=== PATIENT | male | born 1980 | race Caucasian/White ===

== ENCOUNTER 2020-08-23 09:04 | Emergency (ER) | payer BC ==
[~2020-08-23] VITALS: Ht 172.7 cm; Wt 76.7 kg
--- OUTSIDE RECORDS SUMMARY | ~2020-08-23 | XMS | Encounter Summary ---
Demographics + + + | Address | [address] | | | [place] [address] | + + + | Home Phone | | + + + | Preferred Language | Unknown | + + + | Marital Status | Single | + + + | Buddhist Affiliation | 1077 | + + + | Race | White | + + + | Ethnic Group | Not or | + + + Author + + + | Author | [facility] | | | and [place] | + + + | Organization | [facility] | | | and [place] | + + + | Address | Unknown | + + + | Phone | Unavailable | + + + Support + + + + + | Name | Relationship | Address | Phone | + + + + + | Melisa Simpson | ECON | [address] | | | | | [place], | | | | | [place] [address] | | + + + + + | Osmel Simpson | ECON | [address] | | | | | [place] [address] | | + + + + + Care Team Providers + +------+ + | Care Associate Director Qa Name | Role | Phone | + +------+ + PCP | Unavailable | + +------+ + Encounter Details +--------+ + + + + | Date | Type | Department | Care Team | Description | +--------+ + + + + | 07/06/ | Hospital | [facility] | | | | 1992 - | Encounter | [facility] | | | | | | [address] | | | | 07/07/ | | [place] [address] | | | | 1992 | | [phone] | | | +--------+ + + + + Social History + +-------+ +--------+------+ | Tobacco Use | Types | Packs/Day | Years | Date | | | | | Used | | + +-------+ +--------+------+ | Never Assessed | | | | | + +-------+ +--------+------+ + + + | Sex Assigned at | Date Recorded | | | | + + + | Not on file | | + + + documented as of this encounter Plan of Treatment Not on filedocumented as of this encounter Visit Diagnoses Not on filedocumented in this encounter"
--- OUTSIDE RECORDS SUMMARY | ~2020-08-23 | XMS | Encounter Summary ---
Demographics + + + | Address | [address] | | | [place] [address] | + + + | Home Phone | | + + + | Preferred Language | Unknown | + + + | Marital Status | Single | + + + | Uatsdin Affiliation | 1077 | + + + | Race | White | + + + | Ethnic Group | Not or | + + + Author + + + | Author | [facility] | | | and [place] | + + + | Organization | [facility] | | | and [place] | + + + | Address | Unknown | + + + | Phone | Unavailable | + + + Support + + + + + | Name | Relationship | Address | Phone | + + + + + | Melisa Simpson | ECON | [address] [facility] | | | | | [place] | | | | | [place] [address] | | + + + + + | Osmel Simpson | ECON | [address] | | | | | [place] [address] | | + + + + + Care Team Providers + +------+ + | Care Case Hardener Name | Role | Phone | + +------+ + | Félix Li MD | PCP | | + +------+ + Reason for Visit + +--------+ + | Reason | Onset | Comments | | | Date | | + +--------+ + | Medication Refill | 01/30/ | | | | 2013 | | + +--------+ + Encounter Details +--------+--------+ + + + | Date | Type | Department | Care Team | Description | +--------+--------+ + + + | 01/30/ | Refill | [facility] | Félix Li MD | Medication Refill | | 2013 | | [facility] | [address] | | | | | MEDICINE [address] | [address] | | | | | [place] | [place] [address] | | | | | [place] | [phone] | | | | | [address] | | | | | | [phone] | | | +--------+--------+ + + + Social History + +-------+ +--------+------+ | Tobacco Use | Types | Packs/Day | Years | Date | | | | | Used | | + +-------+ +--------+------+ | Never Smoker | | | | | + +-------+ +--------+------+ + + +---------+ + | Alcohol Use | Drinks/Week | oz/Week | Comments | + + +---------+ + | Yes | | | 3 drinks per week | + + +---------+ + + + + | Sex Assigned at | Date Recorded | | | | + + + | Not on file | | + + + documented as of this encounter Plan of Treatment Not on filedocumented as of this encounter Visit Diagnoses Not on filedocumented in this encounter"
--- OUTSIDE RECORDS SUMMARY | ~2020-08-23 | XMS | Encounter Summary ---
Demographics + + + | Address | [address] | | | [place] [address] | + + + | Home Phone | | + + + | Preferred Language | Unknown | + + + | Marital Status | Single | + + + | Christian Affiliation | 1077 | + + + | Race | White | + + + | Ethnic Group | Not or | + + + Author + + + | Author | [facility] | | | and [place] | + + + | Organization | [facility] | | | and [place] | + + + | Address | Unknown | + + + | Phone | Unavailable | + + + Support + + + + + | Name | Relationship | Address | Phone | + + + + + | Melisa Simpson | ECON | [address] | | | | | [place], | | | | | [place] [address] | | + + + + + | Osmel Simpson | ECON | [address] | | | | | [place] [address] | | + + + + + Care Team Providers + +------+ + | Care Gas Turbine Powerplant Mechanic Name | Role | Phone | + +------+ + PCP | Unavailable | + +------+ + Encounter Details +--------+ + + + + | Date | Type | Department | Care Team | Description | +--------+ + + + + | 08/25/ | Hospital | [facility] | | | | 2009 | Encounter | [facility] | | | | | | CENTER [address] | | | | | | [place] | | | | | | [address] | | | | | | [phone] | | | +--------+ + + + [...]
--- OUTSIDE RECORDS SUMMARY | ~2020-08-23 | XMS | Encounter Summary ---
Demographics + + + | Address | [address] | | | [place] [address] | + + + | Home Phone | | + + + | Preferred Language | Unknown | + + + | Marital Status | Single | + + + | Advent Affiliation | 1077 | + + + | Race | White | + + + | Ethnic Group | Not or | + + + Author + + + | Author | [facility] | | | and [place] | + + + | Organization | [facility] | | | and [place] | + + + | Address | Unknown | + + + | Phone | Unavailable | + + + Support + + + + + | Name | Relationship | Address | Phone | + + + + + | Melisa Simpson | ECON | [address] [facility] [address] | | | | | [place] | | | | | [place] [address] | | + + + + + | Osmel Simpson | ECON | [address] | | | | | [place] [address] | | + + + + + Care Team Providers + +------+ + | Care Marketing Analytics Specialist Name | Role | Phone | + +------+ + | Félix Li MD | PCP | | + +------+ + Reason for Visit + +--------+ + | Reason | Onset | Comments | | | Date | | + +--------+ + | Medication Refill | 09/25/ | | | | 2012 | | + +--------+ + Encounter Details +--------+--------+ + + + | Date | Type | Department | Care Team | Description | +--------+--------+ + + + | 09/25/ | Refill | [facility] | Félix Li MD | Medication Refill | | 2012 | | [facility] | [address] | | | | | MEDICINE [address] | [address] | | | | | [place] | [place] [address] | | | | | [place] | [phone] | | | | | [address] | | | | | | [phone] | | | +--------+--------+ + + + [...] + + documented as of this encounter Miscellaneous Notes Telephone Encounter - Rita Hugo - 09/25/2013 5:06 PM PDTFormatting of this note l[place] ht be different from the original. Requested Prescriptions Pending Prescriptions Disp Refills glucose blood test strips (PARVEEN CONTOUR TEST) strip 100 each 3 Sig: QID testing Insulin dependent 250.02 Also needs new rx for machine too. Rita Hugo documented in this encou nter Plan of Treatment Not on filedocumented as of this encounter Visit Diagnoses Not on filedocumented in this encounter"
--- OUTSIDE RECORDS SUMMARY | ~2020-08-23 | XMS | Encounter Summary ---
Demographics + + + | Address | [address] | | | [place] [address] | + + + | Home Phone | | + + + | Preferred Language | Unknown | + + + | Marital Status | Single | + + + | Yarsani Affiliation | 1077 | + + + | Race | White | + + + | Ethnic Group | Not or | + + + Author + + + | Author | [facility] | | | and [place] | + + + | Organization | [facility] | | | and [place] | + + + | Address | Unknown | + + + | Phone | Unavailable | + + + Support + + + + + | Name | Relationship | Address | Phone | + + + + + | Jassi Simpson | ECON | [address] [facility] [facility] | | | | | [place] | | | | | [place] [address] | | + + + + + | Osmel Simpson | ECON | [address] | | | | | [place] [address] | | + + + + + Care Team Providers + +------+ + | Care Treatment Counselor Name | Role | Phone | + +------+ + | Félix Li MD | PCP | | + +------+ + Reason for Visit + +--------+ + | Reason | Onset | Comments | | | Date | | + +--------+ + | Medical Problem | 05/11/ | | | (Minor) | 2013 | | + +--------+ + Encounter Details +--------+ + + + + | Date | Type | Department | Care Team | Description | +--------+ + + + + | 05/11/ | Telephone | [facility] | Félix Li MD | Medical Problem | | 2013 | | [facility] | [address] | ([place]) | | | | CLINIC [address] | [address], | | | | | [place], [place] | [place] [address] | | | | | [address] | [phone] | | | | | [phone] | | | +--------+ + + + [...] this encounter Miscellaneous Notes Telephone Encounter - Kylee Cohen RN - 05/11/2014 8:44 AM PDTDATE/TIME: 05/11/2014 8: 44 Confirmed with patient's spouse and pharmacy. Pharmacy will provide but patient has to pay privately as he just got it refilled 1 week ago. SJB elephone Encounter - Ada Mejia - 05/11/2014 8:05 A M PDTPatient spouse called patient left his Novolog out of [facility] and needs some ri ght away - Please call jassi the spouse at [phone]. Will send to [facility] requested I send message to who ever is here to try fill [facility]. Who ever can react to th is sooner please do. Thanks. Please send to [facility]- but call to let patient know w hen done. documented i n this encounter Plan of Treatment Not on filedocumented as of this encounter Visit Diagnoses Not on filedocumented in this encounter"
--- OUTSIDE RECORDS SUMMARY | ~2020-08-23 | XMS | Encounter Summary ---
Demographics + + + | Address | [address] | | | [place] [address] | + + + | Home Phone | | + + + | Preferred Language | Unknown | + + + | Marital Status | Single | + + + | Spiritism Affiliation | 1077 | + + + | Race | White | + + + | Ethnic Group | Not or | + + + Author + + + | Author | [facility] | | | and [place] | + + + | Organization | [facility] | | | and [place] | + + + | Address | Unknown | + + + | Phone | Unavailable | + + + Support + + + + + | Name | Relationship | Address | Phone | + + + + + | Melisa Simpson | ECON | [address] | | | | | [place], | | | | | [place] [address] | | + + + + + | Osmel Simpson | ECON | [address] | | | | | [place] [address] | | + + + + + Care Team Providers + +------+ + | Care Ripening Room Attendant Name | Role | Phone | + +------+ + PCP | Unavailable | + +------+ + Encounter Details +--------+ + + + + | Date | Type | Department | Care Team | Description | +--------+ + + + + | 07/22/ | Hospital | [facility] | Félix Li MD | | | 2011 | Encounter | [facility] | [address] | | | | | EDUCATION [address] | [address], | | | | | [facility] | [place] [address] | | | | | [place], [place] | [phone] | | | | | [address] | | | | | | [phone] | | | +--------+ + + + [...]
--- OUTSIDE RECORDS SUMMARY | ~2020-08-23 | XMS | Encounter Summary ---
Demographics + + + | Address | [address] | | | [place] [address] | + + + | Home Phone | | + + + | Preferred Language | Unknown | + + + | Marital Status | Single | + + + | Gnosticism Affiliation | 1077 | + + + | Race | White | + + + | Ethnic Group | Not or | + + + Author + + + | Author | [facility] | | | and [place] | + + + | Organization | [facility] | | | and [place] | + + + | Address | Unknown | + + + | Phone | Unavailable | + + + Support + + + + + | Name | Relationship | Address | Phone | + + + + + | Melisa Simpson | ECON | [address] | | | | | [place], | | | | | [place] [address] | | + + + + + | Osmel Simpson | ECON | [address] | | | | | [place] [address] | | + + + + + Care Team Providers + +------+ + | Care Echocardiographer Name | Role | Phone | + +------+ + PCP | Unavailable | + +------+ + Encounter Details +--------+ + + + + | Date | Type | Department | Care Team | Description | +--------+ + + + + | 11/29/ | Hospital | [facility] | | | | 1996 | Encounter | [facility] | | | | | | CENTER [address] | | | | | | [place] | | | | | | [address] | | | | | | [phone] | | | +--------+ + + + [...]
--- OUTSIDE RECORDS SUMMARY | ~2020-08-23 | XMS | Encounter Summary ---
Demographics + + + | Address | [address] | | | [place] [address] | + + + | Home Phone | | + + + | Preferred Language | Unknown | + + + | Marital Status | Single | + + + | Zoroastrianism Affiliation | 1077 | + + + | Race | White | + + + | Ethnic Group | Not or | + + + Author + + + | Author | [facility] | | | and [place] | + + + | Organization | [facility] | | | and [place] | + + + | Address | Unknown | + + + | Phone | Unavailable | + + + Support + + + + + | Name | Relationship | Address | Phone | + + + + + | Melisa Simpson | ECON | [address] [facility] | | | | | [place] | | | | | [place] [address] | | + + + + + | Osmel Simpson | ECON | [address] | | | | | [place] [address] | | + + + + + Care Team Providers + +------+ + | Care Archeology Professor Name | Role | Phone | + +------+ + | Félix Li MD | PCP | | + +------+ + Reason for Visit + + + | Reason | Comments | + + + | Skin Lesion | wants lesion on penis removed. Had smaller lesions removed | | | several months ago, with Dr Watson, but larger one remains. | + + + Encounter Details +--------+---------+ + + + | Date | Type | Department | Care Team | Description | +--------+---------+ + + + | 10/02/ | Office | [facility] | Amee Hou | HPV in male (Primary | | 2012 | Visit | [facility] | [address] | Dx) | | | | MEDICINE [address] | [address] | | | | | [address] | [place], [place] | | | | | [place], [place] | [address] | | | | | [address] | | | | | | [phone] | | | +--------+---------+ + + + Social History + +-------+ [...] + + documented as of this encounter Last Filed Vital Signs + + + + + | Vital Sign | Reading | Time Taken | Comments | + + + + + | Blood Pressure | 120/80 | 10/02/2013 10:18 AM | | | | | PST | | + + + + + | Pulse | 81 | 10/02/2013 10:18 AM | | | | | PST | | + + + + + | Temperature | - | - | | + + + + + | Respiratory Rate | - | - | | + + + + + | Oxygen Saturation | 99% | 10/02/2013 10:18 AM | | | | | PST | | + + + + + | Inhaled Oxygen | - | - | | | Concentration | | | | + + + + + | Weight | 70.9 kg (156 lb 4.8 | 10/02/2013 10:18 AM | | | | oz) | PST | | + + + + + | Height | - | - | | + + + + + | Body Mass Index | - | - | | + + + + + documented in this encounter Progress Notes Amee Hou PA-C - 10/02/2013 10:37 AM PSTFormatting of this note might be differe nt from the original. Objective: Osmel Simpson is a 33 y.o. male presenting for evaluation and treatment of one HPV lesion. He has been diagnosed in the past and was seen a number of months ago was in a dermatology office and also. He had a number of penile HPV lesions treated at that trent e but one larger lesion persisted. He has no other complaints or concerns today. No Known Allergies ROS negative for all systems with regards to the chief complaint. Subjective: Physical Exam BP 120/80 | Pulse 81 | Wt 70.897 kg (156 lb 4.8 oz) | SpO2 99% Constitutional: Osmel Simpson is alert and oriented, well-developed, well -nourished, healthy and non-toxic in appearance and in no acute distress. Head : Normocephalic and atraumatic. Eyes: Conjunctivae clear, noninjected. No scleral icterus noted. Skin: A directed exam was performed, evaluating the lesion of concern on the left lateral aspect of his penile shaft. There was an approximately 3-4 mm verrucous papule, consistent with HPV. Diagnosis/Plan: 1. HPV in male 1. After verbal consent, 1 HPV lesion was treated with cryotherapy. The patient tolerated t he procedure well and wound care instructions, post treatment inflammation and healing expec tations were reviewed. 2. He knows to return with persistent or recurrent HPV lesions or other acute skin changes or lesions of concern. This note was dictated using voice recognition software. 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
--- OUTSIDE RECORDS SUMMARY | ~2020-08-23 | XMS | Encounter Summary ---
Demographics + + + | Address | [address] | | | [place] [address] | + + + | Home Phone [...] Author + + + | Author | [facility] | | | and [place] | + + + | Organization | [facility] | | | and [place] | + + + | Address | Unknown | + + + | Phone | Unavailable | + + + Support + + + + + | Name | Relationship | Address | Phone | + + + + + | Melisa Simpson | ECON | [address] [facility] | | | | | [place] | | | | | [place] [address] | | + + + + + | Osmel Simpson | ECON | [address] | | | | | [place] [address] | | + + + + + Care Team Providers + +------+ + | Care Leaf Sorter Name | Role | Phone | + +------+ + | Félix Li MD | PCP | | + +------+ + Reason for Visit + +--------+ + | Reason | Onset | Comments | | | Date | | + +--------+ + | Medication Refill | 08/25/ | | | | 2012 | | + +--------+ + Encounter Details +--------+--------+ + + + | Date | Type | Department | Care Team | Description | +--------+--------+ + + + | 08/25/ | Refill | [facility] | Félix Li MD | Medication Refill | | 2012 | | [facility] | [address] | | | | | MEDICINE [address] | [address] | | | | | [place] | [place] [address] | | | | | [place] | [phone] | | | | | [address] | | | | | | [phone] | | | +--------+--------+ + + + [...] this encounter Miscellaneous Notes Telephone Encounter - Gwen Tnaner - 08/25/2013 5:55 PM PDTFax rec'd for Novolog 100U/M L Thanks Gwen Tanner documented in this encounter Plan of Treatment Not on filedocumented as of this encounter Visit Diagnoses + + | Diagnosis | + + | Type I (juvenile type) diabetes mellitus without mention of complication, not stated | | as uncontrolled - Primary | + + documented in this encounter"
--- OUTSIDE RECORDS SUMMARY | ~2020-08-23 | XMS | Encounter Summary ---
Demographics + + + | Address | [address] | | | [place] [address] | + + + | Home Phone | | + + + | Preferred Language | Unknown | + + + | Marital Status | Single | + + + | Mandaen Affiliation | 1077 | + + + | Race | White | + + + | Ethnic Group | Not or | + + + Author + + + | Author | [facility] | | | and [place] | + + + | Organization | [facility] | | | and [place] | + + + | Address | Unknown | + + + | Phone | Unavailable | + + + Support + + + + + | Name | Relationship | Address | Phone | + + + + + | Melisa Simpson | ECON | [address] [facility] | | | | | [place] | | | | | [place] [address] | | + + + + + | Osmel Simpson | ECON | [address] | | | | | [place] [address] | | + + + + + Care Team Providers + +------+ + | Care Percussion Welding Machine Operator Name | Role | Phone | + +------+ + | Félix Li MD | PCP | | + +------+ + Reason for Visit + +--------+ + | Reason | Onset | Comments | | | Date | | + +--------+ + | Medication Refill | 09/01/ | | | | 2012 | | + +--------+ + Encounter Details +--------+--------+ + + + | Date | Type | Department | Care Team | Description | +--------+--------+ + + + | 09/01/ | Refill | [facility] | Félix Li MD | Medication Refill | | 2012 | | [facility] | [address] | | | | | [address] | [address] [place] | | | | | [address] [facility] [address] | | | | | [place] | [phone] | | | | | [address] | | | | | | [phone] | | | +--------+--------+ + + + [...] this encounter Miscellaneous Notes Telephone Encounter - Leisa Galarza - 09/01/2013 10:13 AM PDTFormatting of this note migh t be different from the original. Requested Prescriptions Pending Prescriptions Disp Refills atorvaSTATin (LIPITOR) 20 mg tablet 90 tablet Sig: Take 1 tablet by mouth nightly. LF 08/03/2013 Thanks, Leisa Galarza documented in this encoun ter Plan of Treatment Not on filedocumented as of this encounter Visit Diagnoses Not on filedocumented in this encounter"
--- OUTSIDE RECORDS SUMMARY | ~2020-08-23 | XMS | Encounter Summary ---
Demographics + + + | Address | [address] | | | [place] [address] | + + + | Home Phone | | + + + | Preferred Language | Unknown | + + + | Marital Status | Single | + + + | Taoism Affiliation | 1077 | + + + | Race | White | + + + | Ethnic Group | Not or | + + + Author + + + | Author | [facility] | | | and [place] | + + + | Organization | [facility] | | | and [place] | + + + | Address | Unknown | + + + | Phone | Unavailable | + + + Support + + + + + | Name | Relationship | Address | Phone | + + + + + | Melisa Simpson | ECON | [address] [facility] | | | | | [place] | | | | | [place] [address] | | + + + + + | Osmel Simpson | ECON | [address] | | | | | [place] [address] | | + + + + + Care Team Providers + +------+ + | Care Private Branch Exchange Service Advisor Name | Role | Phone | + +------+ + | Félix Li MD | PCP | | + +------+ + Reason for Visit + + + | Reason | Comments | + + + | Medication Refill | | + + + Encounter Details +--------+--------+ + + + | Date | Type | Department | Care Team | Description | +--------+--------+ + + + | 03/21/ | Refill | [facility] | Félix Li MD | Medication Refill | | 2013 | | [facility] | [address] | | | | | MEDICINE [address] | [address] [facility] [address] | | | | | [place] | [place] [address] | | | | | [place], [place] | [phone] | | | | | [address] | | | | | | [phone] | | | +--------+--------+ + + + [...] Telephone Encounter - Kylee Cohen RN - 03/24/2014 10:29 AM PDTDATE/TIME: 03/24/2014 10 :29 ANA and labs on 09/05/13. Refilled x 6 months. SJB documented in this encounter Plan of Treatment Not on filedocumented as of this encounter Visit Diagnoses + + | Diagnosis | + + | Type I (juvenile type) diabetes mellitus without mention of complication, not stated | | as uncontrolled - Primary | + + | Unspecified essential hypertension | + + documented in this encounter"
--- OUTSIDE RECORDS SUMMARY | ~2020-08-23 | XMS | Encounter Summary ---
Demographics + + + | Address | [address] | | | [place] [address] | + + + | Home Phone | | + + + | Preferred Language | Unknown | + + + | Marital Status | Single | + + + | Catholic Affiliation | 1077 | + + + | Race | White | + + + | Ethnic Group | Not or | + + + Author + + + | Author | [facility] | | | and [place] | + + + | Organization | [facility] | | | and [place] | + + + | Address | Unknown | + + + | Phone | Unavailable | + + + Support + + + + + | Name | Relationship | Address | Phone | + + + + + | Melisa Simpson | ECON | [address] | | | | | [place], | | | | | [place] [address] | | + + + + + | Osmel Simpson | ECON | [address] | | | | | [place] [address] | | + + + + + Care Team Providers + +------+ + | Care Rock Lather Name | Role | Phone | + +------+ + PCP | Unavailable | + +------+ + Encounter Details +--------+ + + + + | Date | Type | Department | Care Team | Description | +--------+ + + + + | 12/31/ | Hospital | [facility] | [place], | | | 1992 - | Encounter | MED CTR MED ONC | Henry Huber MD [address] | | | | | [address] [place] | [facility] | | | 01/02/ | | [place] [address] | [place] [address] | | | 1992 | | [phone] | [phone] | | | | | | | | +--------+ + + + [...]
--- OUTSIDE RECORDS SUMMARY | ~2020-08-23 | XMS | Encounter Summary ---
Demographics + + + | Address | [address] | | | [place] [address] | + + + | Home Phone [...] + | Author | [facility] | | | and [place] [...] Jassi Simpson | ECON | [address] | | | | | [place] | | | | | [place] [address] | | + + + + + | Osmel Simpson | ECON | [address] | | | | | [place] [address] | | + + + + + Care Team Providers + +------+ + | Care Partner Cco Name | Role | Phone | + +------+ + | Félix Li MD | PCP | | + +------+ + Reason for Visit + +--------+ + | Reason | Onset | Comments | | | Date | | + +--------+ + | Medication | 11/12/ | | | Management | 2012 | | + +--------+ + Encounter Details +--------+ + + + + | Date | Type | Department | Care Team | Description | +--------+ + + + + | 11/12/ | Telephone | [facility] | Félix Li MD | Medication | | 2012 | | HEALTHCARE INTERNAL | [address] | Management | | | | MEDICINE 9[address] | [address], | | | | | [address] [place] | [place] [address] | | | | | [place] | [phone] | | | | | [address] | | | | | | [phone] | | | +--------+ + + + [...] Notes Telephone Encounter - Rita Hugo - 11/12/2013 5:54 PM PSTFormatting of this note l[place] ht be different from the original. Requested Prescriptions Pending Prescriptions Disp Refills glucose blood test strips (PARVEEN CONTOUR TEST) strip 100 each 3 Sig: QID testing Insulin dependent 250.02 Rita Hugo elephone Encounter - Gwen Sanchez - 11/12/2013 10:44 AM PSTpls call jassi re some medication mix up ? He needs it they are going out of town [phone] Thanks Gewn Tanner documented in this encounter Plan of Treatment Not on filedocumented as of this encounter Visit Diagnoses Not on filedocumented in this encounter"
--- OUTSIDE RECORDS SUMMARY | ~2020-08-23 | XMS | Encounter Summary ---
Demographics + + + | Address | [address] | | | [place] [address] | + + + | Home Phone [...] Author + + + | Author | [facility] | | | and [place] | + + + | Organization | [facility] | | | and [place] | + + + | Address | Unknown | + + + | Phone | Unavailable | + + + Support + + + + + | Name | Relationship | Address | Phone | + + + + + | Melisa Simpson | ECON | [address] | | | | | [place] | | | | | [place] [address] | | + + + + + | Osmel Simpson | ECON | [address] | | | | | [place] [address] | | + + + + + Care Team Providers + +------+ + | Care State Trooper Name | Role | Phone | + +------+ + | Félix Li MD | PCP | | + +------+ + Reason for Visit + +--------+ + | Reason | Onset | Comments | | | Date | | + +--------+ + | Medication Refill | 08/25/ | Novolog | | | 2012 | | + +--------+ + Encounter Details +--------+--------+ + + + | Date | Type | Department | Care Team | Description | +--------+--------+ + + + | 08/25/ | Refill | [facility] | Félix Li MD | Medication Refill | | 2012 | | HEALTHCARE INTERNAL | [address] | (Novolog) | | | | MEDICINE 934 | [address] | | | | | [place] | [place] [address] | | | | | [place] | [phone] | | | | | [address] | | | | | | [phone] | | | +--------+--------+ + + + [...] this encounter Miscellaneous Notes Telephone Encounter - Odessa Gallegos - 08/25/2013 3:59 PM PDTPlease send the novolo g 100/unit/ml to [facility], He is currenly out of the medication, documented in this encounter Plan of Treatment Not on filedocumented as of this encounter Visit Diagnoses + + | Diagnosis | + + | Type I (juvenile type) diabetes mellitus without mention of complication, not stated | | as uncontrolled - Primary | + + documented in this encounter"
--- OUTSIDE RECORDS SUMMARY | ~2020-08-23 | XMS | Encounter Summary ---
Demographics + + + | Address | [address] | | | [place] [address] | + + + | Home Phone | | + + + | Preferred Language | Unknown | + + + | Marital Status | Single | + + + | Latter Day Affiliation | 1077 | + + + | Race | White | + + + | Ethnic Group | Not or | + + + Author + + + | Author | [facility] | | | and [place] [...] Melisa Simpson | ECON | [address] [address] | | | | | [place] | | | | | [place] [address] | | + + + + + | Osmel Simpson | ECON | [address] | | | | | [place] [address] | | + + + + + Care Team Providers + +------+ + | Care Supervisor Grading Name | Role | Phone | + +------+ + | Félix Li MD | PCP | | + +------+ + Encounter Details +--------+ + + + + | Date | Type | Department | Care Team | Description | +--------+ + + + + | 09/02/ | Abstract | [facility] | Félix Li MD | Diabetes mellitus | | 2013 | | HEALTHCARE INTERNAL | [address] | type 1 (HCC) | | | | MEDICINE 934 | [address], | (Primary Dx); | | | | [address] [place] | [place] [address] | Hyperlipidemia; | | | | [place] | [phone] | Hypertension | | | | [address] | | | | | | [phone] | | | +--------+ + + + [...] + | Diagnosis | + + | Diabetes mellitus type 1 (HCC) - Primary Type I (juvenile type) diabetes mellitus | | without mention of complication, not stated as uncontrolled | + + | Hyperlipidemia Other and unspecified hyperlipidemia | + + | Hypertension Unspecified essential hypertension | + + documented in this encounter"
--- OUTSIDE RECORDS SUMMARY | ~2020-08-23 | XMS | Encounter Summary ---
Demographics + + + | Address | [address] | | | [place] [address] | + + + | Home Phone | | + + + | Preferred Language | Unknown | + + + | Marital Status | Single | + + + | Episcopalian Affiliation | 1077 | + + + | Race | White | + + + | Ethnic Group | Not or | + + + Author + + + | Author | [facility] | | | and [place] | + + + | Organization | [facility] | | | and [place] | + + + | Address | Unknown | + + + | Phone | Unavailable | + + + Support + + + + + | Name | Relationship | Address | Phone | + + + + + | Melisa Simpson | ECON | [address] [facility] | | | | | [place], | | | | | [place] [address] | | + + + + + | Osmel Simpson | ECON | [address] | | | | | [place] [address] | | + + + + + Care Team Providers + +------+ + | Care Sausage Canner Name | Role | Phone | + +------+ + PCP | Unavailable | + +------+ + Reason for Visit + +--------+ + | Reason | Onset | Comments | | | Date | | + +--------+ + | Medication Refill | 07/21/ | | | | 2014 | | + +--------+ + Encounter Details +--------+--------+ + + + | Date | Type | Department | Care Team | Description | +--------+--------+ + + + | 07/21/ | Refill | [facility] | Félix Li MD | Medication Refill | | 2014 | | [facility] | [address] [facility] | | | | | CLINIC 1010 | [address], | | | | | [address] [facility] [address] | [place] [address] | | | | | [place], [place] | [phone] | | | | | [address] | | | | | | [phone] | | | +--------+--------+ + + + [...] Notes Telephone Encounter - Rita Hugo - 07/21/2015 11:42 AM PDTFormatting of this note [place] ht be different from the original. Requested Prescriptions Pending Prescriptions Disp Refills insulin lispro (HUMALOG) 100 units/mL injection (vial) 10 mL 0 Sig: For every 25 points blood sugar > 150 take 1 unit, plus for every 12 carbs take 1 un it. 3 x daily. Fax request received from [facility] in [place], [place]. Thanks! Rita Hugo documented in this encou nter Plan of Treatment Not on filedocumented as of this encounter Visit Diagnoses Not on filedocumented in this encounter"
--- OUTSIDE RECORDS SUMMARY | ~2020-08-23 | XMS | Encounter Summary ---
Demographics + + + | Address | [address] | | | [place] [address] | + + + | Home Phone | | + + + | Preferred Language | Unknown | + + + | Marital Status | Single | + + + | Yazdanism Affiliation | 1077 | + + + | Race | White | + + + | Ethnic Group | Not or | + + + Author + + + | Author | [facility] | | | and [place] [...] [address] | | | | | [place], | | | | | [place] [address] | | + + + + + | Osmel Simpson | ECON | [address] | | | | | [place] [address] | | + + + + + Care Team Providers + +------+ + | Care Communications Project Lead Name | Role | Phone | + +------+ + PCP | Unavailable | + +------+ + Encounter Details +--------+ + + + + | Date | Type | Department | Care Team | Description | +--------+ + + + + | 11/29/ | Hospital | [facility] | | | | 1996 - | Encounter | MED CTR ICU [address] | | | | | | [place], | | | | 11/30/ | | [place] [address] | | | | 1996 | | [phone] | | | +--------+ + + + [...]
--- OUTSIDE RECORDS SUMMARY | ~2020-08-23 | XMS | Encounter Summary ---
Demographics + + + | Address | [address] | | | [place] [address] | + + + | Home Phone | | + + + | Preferred Language | Unknown | + + + | Marital Status | Single | + + + | Roman Catholic Affiliation | 1077 | + + + | Race | White | + + + | Ethnic Group | Not or | + + + Author + + + | Author | [facility] | | | and [place] | + + + | Organization | [facility] | | | and [place] | + + + | Address | Unknown | + + + | Phone | Unavailable | + + + Support + + + + + | Name | Relationship | Address | Phone | + + + + + | Melisa Simpson | ECON | [address] | | | | | [place] | | | | | [place] [address] | | + + + + + | Osmel Simpson | ECON | [address] | | | | | [place] [address] | | + + + + + Care Team Providers + +------+ + | Care Clinical Biochemical Geneticist Name | Role | Phone | + +------+ + | Félix Li MD | PCP | | + +------+ + Encounter Details +--------+ + + + + | Date | Type | Department | Care Team | Description | +--------+ + + + + | 09/05/ | Hospital | [facility] | Félix Li MD | Diabetes mellitus | | 2013 | Encounter | HEALTHCARE | [address] [facility] | type 1 (HCC); | | | | LABORATORY 834 | [address], | Hypertension | | | | [address] | [place] [address] | | | | | [place], [place] | [phone] | | | | | [address] | | | | | | [phone] | | | +--------+ + + + [...] + + documented as of this encounter Medications at Time of Discharge + + + +---------+ + + | Medication | Sig | Dispensed | Refills | Start | End Date | | | | | | Date | | + + + +---------+ + + | aspirin 81 mg EC | Take 81 mg by mouth | | 0 | | | | tablet | Daily. | | | | | + + + +---------+ + + | erythromycin | 3 times daily. | | 0 | | | | ophthalmic ointment | | | | | | + + + +---------+ + + | Insulin | by Does not apply | | 0 | | | | Syringe-Needle U-100 | route. | | | | | | 30G X 5/16" 0.3 ML | | | | | | | MISC | | | | | | + + + +---------+ + + | Multiple Vitamin | Take by mouth. | | 0 | | | | (MULTI-VITAMIN PO) | | | | | | + + + +---------+ + + | Saline 0.9 % | by Nasal route. | | 0 | | | | (BEENA) BEENA | | | | | | + + + +---------+ + + | atorvaSTATin | Take 1 tablet by | 90 | 0 | 09/01/20 | | | (LIPITOR) 20 mg | mouth nightly. | tablet | | 13 | 4 | | tablet | | | | | | + + + +---------+ + + | glucose blood | QID testing Insulin | 100 | 3 | 08/19/20 | | | test strips (PARVEEN | dependent 250.02 | each | | 13 | 3 | | CONTOUR TEST) strip | | | | | | + + + +---------+ + + | insulin aspart | For every 25 points | 20 mL | 3 | 08/27/20 | | | (NOVOLOG) 100 | blood sugar > 150 | | | 13 | 4 | | units/mL | take 1 unit, plus | | | | | | injectionIndications | for ever 12 carbs | | | | | | : Type I (juvenile | take 1 unit. 3 times | | | | | | type) diabetes | daily before meals. | | | | | | mellitus without | | | | | | | mention of | | | | | | | complication, not | | | | | | | stated as | | | | | | | uncontrolled | | | | | | + + + +---------+ + + | insulin glargine | Inject 18 Units | | 0 | | | | (LANTUS) 100 | under the skin | | | | 3 | | units/mL injection | nightly. | | | | | + + + +---------+ + + | lisinopril | Take 1 tablet by | 90 | 1 | 09/05/20 | | | (PRINIVIL, ZESTRIL) | mouth Daily. | tablet | | 13 | 4 | | 10 mg tablet | | | | | | + + + +---------+ + + documented as of this encounter Progress Notes Kylee Cohen RN - 09/08/2013 2:37 PM PDT Quick Note: DATE/TIME: 09/08/2013 14:36 Letter with annotation sent to patient.SJB élix Li MD - 09/05/2013 4:20 PM PDT Quick Note: As expected, blood sugar control could use some improvement. He is not spilling protein in his urine, and kidney function is normal. We could refer him to program management specialist if he w ishes documented in this e ncounter Plan of Treatment Not on filedocumented as of this encounter Procedures + +--------+ + + + | Procedure Name | Priori | Date/Time | Associated Diagnosis | Comments | | | ty | | | | + +--------+ + + + | MICROALBUMIN/CREATIN | Routin | 09/05/2013 | Diabetes mellitus | Results for this | | INE RATIO, URINE | e | 9:40 AM | type 1 (HCC) | procedure are in the | | TEST | | PDT | | results section. | + +--------+ + + + | HEMOGLOBIN A1C | Routin | 09/05/2013 | Diabetes mellitus | Results for this | | | e | 9:35 AM | type 1 (HCC) | procedure are in the | | | | PDT | | results section. | + +--------+ + + + | BASIC METABOLIC | Routin | 09/05/2013 | Hypertension | Results for this | | PANEL | e | 9:35 AM | | procedure are in the | | | | PDT | | results section. | + +--------+ + + + documented in this encounter Results Microalbumin/Creatinine Ratio, Urine (09/05/2013 9:40 AM PDT) + +-------+ + + + | Component | Value | Ref Range | Performed | Pathologist | | | | | At | Signature | + +-------+ + + + | Microalbumi | 0.9 | mg/dL | [facility] | | | n, Urine, | | | HEALTHCARE | | | Random | | | LAB | | + +-------+ + + + | Creatinine, | 148 | mg/dL | [facility] | | | Urine, | | | HEALTHCARE | | | Random | | | LAB | | + +-------+ + + + | Microalbumi | 6 | <=30 mg/g | [facility] | | | n/Creatinin | | | HEALTHCARE | | | ratio | | | LAB | | + +-------+ + + + + + | Specimen | + + | Urine specimen | | (specimen) - Urine, | | Clean Catch | + + + + + + + | Performing | Address | City/State/Zipcode | Phone Number | | Organization | | | | + + + + + | [facility] | [address] [facility] | [place], [place] | [phone] | | HEALTHCARE LAB | | [address] | | + + + + + Basic Metabolic Panel (09/05/2013 9:35 AM PDT) + + + + + + | Component | Value | Ref Range | Performed | Pathologist | | | | | At | Signature | + + + + + + | Na | 138 | 136 - 145 | [facility] | | | | | mmol/L | HEALTHCARE | | | | | | LAB | | + + + + + + | K | 4.0 | 3.5 - 5.1 | [facility] | | | | | mmol/L | HEALTHCARE | | | | | | LAB | | + + + + + + | Cl | 102 | 98 - 107 mmol/L | [facility] | | | | | | HEALTHCARE | | | | | | LAB | | + + + + + + | CO2 | 27 | 21 - 32 mmol/L | [facility] | | | | | | HEALTHCARE | | | | | | LAB | | + + + + + + | Anion Gap | 9 | 5 - 15 mmol/L | [facility] | | | | | | HEALTHCARE | | | | | | LAB | | + + + + + + | Glucose | 78 | 74 - 100 mg/dL | [facility] | | | | | | HEALTHCARE | | | | | | LAB | | + + + + + + | BUN | 17 | 7 - 18 mg/dL | [facility] | | | | | | HEALTHCARE | | | | | | LAB | | + + + + + + | Creatinine | 0.70 | 0.60 - 1.30 | [facility] | | | | | mg/dL | HEALTHCARE | | | | | | LAB | | + + + + + + | eGFR, | >60Comment: GLOMERULAR | >=60 | [facility] | | | non- | FILTRATION | mL/min/1.73m2 | HEALTHCARE | | | [place] | RATE,ESTIMATED | | LAB | | | | mL/min/1.67a2Daya than | | | | | | 60 Chronic kidney | | | | | | disease,if found over a | | | | | | 3-month period.Less than | | | | | | 15 Kidney failureFor | | | | | | | | | | | | Americans,multiply the | | | | | | calculated GFR by 1.21. | | | | | | | | | | + + + + + + | Calcium | 9.1 | 8.5 - 10.1 | [facility] | | | | | mg/dL | HEALTHCARE | | | | | | LAB | | + + + + + + | BUN/Creatin | 24.3 (H) | 10.0 - 20.0 | [facility] | | | ine Ratio | | | HEALTHCARE | | | | | | LAB | | + + + + + + + + | Specimen | + + | Blood specimen | | (specimen) | + + + + + + + | Performing | Address | City/State/Zipcode | Phone Number | | Organization | | | | + + + + + | [facility] | [address] [facility] [facility] | [place], [place] | [phone] | | HEALTHCARE LAB | | [address] | | + + + + + Hemoglobin A1C (09/05/2013 9:35 AM PDT) + +---------+ + + + | Component | Value | Ref Range | Performed | Pathologist | | | | | At | Signature | + +---------+ + + + | Hemoglobin | 8.0 (H) | 4.8 - 6.0 % | [facility] | | | A1c | | | HEALTHCARE | | | | | | LAB | | + +---------+ + + + | Estimated | 183 | mg/dL | [facility] | | | Average | | | HEALTHCARE | | | Glucose | | | LAB | | + +---------+ + + + + + | Specimen | + + | Blood specimen | | (specimen) | + + + + + + + | Performing | Address | City/State/Zipcode | Phone Number | | Organization | | | | + + + + + | [facility] | [address] [facility] | [place], [place] | [phone] | | HEALTHCARE LAB | | [address] | | + + + + + documented in this encounter Visit Diagnoses + + | Diagnosis | + + | Diabetes mellitus type 1 (HCC) Type I (juvenile type) diabetes mellitus without | | mention of complication, not stated as uncontrolled | + + | Hypertension Unspecified essential hypertension | + + documented in this encounter
--- OUTSIDE RECORDS SUMMARY | ~2020-08-23 | XMS | Encounter Summary ---
Demographics + + + | Address | [address] | | | [place] [address] | + + + | Home Phone [...] Author + + + | Author | [facility] | | | and [place] | + + + | Organization | [facility] | | | and [place] | + + + | Address | Unknown | + + + | Phone | Unavailable | + + + Support + + + + + | Name | Relationship | Address | Phone | + + + + + | Melisa Simpson | ECON | [address] [facility] | | | | | [place], | | | | | [place] [address] | | + + + + + | Osmel Simpson | ECON | [address] | | | | | [place] [address] | | + + + + + Care Team Providers + +------+ + | Care Supervisor Nurse Name | Role | Phone | + +------+ + PCP | Unavailable | + +------+ + Reason for Visit + +--------+ + | Reason | Onset | Comments | | | Date | | + +--------+ + | Medication Refill | 08/19/ | refill request | | | 2012 | | + +--------+ + Encounter Details +--------+--------+ + + + | Date | Type | Department | Care Team | Description | +--------+--------+ + + + | 08/19/ | Refill | [facility] | Félix Li MD | Medication Refill | | 2012 | | HEALTHCARE INTERNAL | [address] | (refill request) | | | | MEDICINE 934 | [address], | | | | | [place] | [place] [address] | | | | | [place] | [phone] | | | | | [address] | | | | | | [phone] | | | +--------+--------+ + + + [...] this encounter Miscellaneous Notes Telephone Encounter - Shruthi Bermudez RN - 08/20/2013 10:09 AM PDT08/20/2013 Test strips refilled to pharmacy last evening Shruthi Bermudez RN eleph one Encounter - Ada Mejia - 08/19/2013 5:15 PM PDTReceived fax [facility] [address] ( Test blood sugar up to 4 times daily) last filled Rx# [id number] Thanks Med not listed! documented in this encounter Plan of Treatment Not on filedocumented as of this encounter Visit Diagnoses Not on filedocumented in this encounter"
--- OUTSIDE RECORDS SUMMARY | ~2020-08-23 | XMS | Encounter Summary ---
Demographics + + + | Address | [address] | | | [place] [address] | + + + | Home Phone | | + + + | Preferred Language | Unknown | + + + | Marital Status | Single | + + + | Judaism Affiliation | 1077 | + + + | Race | White | + + + | Ethnic Group | Not or | + + + Author + + + | Author | [facility] | | | and [place] | + + + | Organization | [facility] | | | and [place] | + + + | Address | Unknown | + + + | Phone | Unavailable | + + + Support + + + + + | Name | Relationship | Address | Phone | + + + + + | Melisa Simpson | ECON | [address] | | | | | [place] | | | | | [place] [address] | | + + + + + | Osmel Simspon | ECON | [address] | | | | | [place] [address] | | + + + + + Care Team Providers + +------+ + | Care Hogshead Builder Name | Role | Phone | + [...] Description | +--------+--------+ + + + | 05/05/ | Refill | [facility] | Félix Li MD | Medication Refill | | 2013 | | HEALTHCARE INTERNAL | [address] | | | | | MEDICINE 934 | [address] | | | | | [place] | [place] [address] | | | | | [place], [place] | [phone] | | | | | [address] | | | | | | [phone] | | | +--------+--------+ + + + [...]
--- OUTSIDE RECORDS SUMMARY | ~2020-08-23 | XMS | Encounter Summary ---
Demographics + + + | Address | [address] | | | [place] [address] | + + + | Home Phone [...] Author + + + | Author | [facility] | | | and [place] | + + + | Organization | [facility] | | | and [place] | + + + | Address | Unknown | + + + | Phone | Unavailable | + + + Support + + + + + | Name | Relationship | Address | Phone | + + + + + | Melisa Simpson | ECON | [address] | | | | | [place], | | | | | [place] [address] | | + + + + + | Osmel Simpson | ECON | [address] | | | | | [place] [address] | | + + + + + Care Team Providers + +------+ + | Care Assembly Inspector Helper Name | Role | Phone | + +------+ + PCP | Unavailable | + +------+ + Encounter Details +--------+ + + + + | Date | Type | Department | Care Team | Description | +--------+ + + + + | 07/13/ | Hospital | [facility] | Félix Li MD | | | 2012 | Encounter | HEALTHCARE | [address] | | | | | LABORATORY [address] | [address] [place], | | | | | [address] | [place] [address] | | | | | [place], [place] | [phone] | | | | | [address] | | | | | | [phone] | | | +--------+ + + + [...] | + +--------+ + + + | LIPID PANEL | Routin | 07/13/2012 | | Results for this | | | e | 8:30 AM | | procedure are in the | | | | PDT | | results section. | + +--------+ + + + | MICROALBUMIN/CREATIN | Routin | 07/13/2012 | | Results for this | | INE RATIO, URINE | e | 8:30 AM | | procedure are in the | | TEST | | PDT | | results section. | + +--------+ + + + | HEMOGLOBIN A1C | Routin | 07/13/2012 | | Results for this | | | e | 8:30 AM | | procedure are in the | | | | PDT | | results section. | + +--------+ + + + | COMPREHENSIVE | Routin | 07/13/2012 | | Results for this | | METABOLIC PANEL | e | 8:30 AM | | procedure are in the | | | | PDT | | results section. | + +--------+ + + + documented in this encounter Results Lipid Panel (07/13/2012 8:30 AM PDT) + +---------+ + + + | Component | Value | Ref Range | Performed | Pathologist | | | | | At | Signature | + +---------+ + + + | Triglycerid | 62 | 30 - 150 mg/dL | [facility] | | | es | | | HEALTHCARE | | | | | | LAB | | + +---------+ + + + | Cholesterol | 174 | 0 - 200 mg/dL | [facility] | | | | | | [facility]ALTHCARE | | | | | | LAB | | + +---------+ + + + | HDL | 91 (H) | 40 - 59 mg/dL | [facility] | | | | | | HEALTHCARE | | | | | | LAB | | + +---------+ + + + | LDL, | 71 | mg/dL | [facility] | | | Calculated | | | HEALTHCARE | | | | | | LAB | | + +---------+ + + + | Chol/HDL | 1.9 (L) | 2.5 - 6.2 | [facility] | | | Ratio | | | HEALTHCARE | | | | | | LAB | | + +---------+ + + + + + | Specimen | + + | | + + + + + + + | Performing | Address | City/State/Zipcode | Phone Number | | Organization | | | | + + + + + | [facility] | [address] | [place], [place] | [phone] | | HEALTHCARE LAB | | [address] | | + + + + + | [facility] | | | [phone] | | HEALTHCARE LAB | | | | + + + + + Hemoglobin A1C (07/13/2012 8:30 AM PDT) + + + + + + | Component | Value | Ref Range | Performed | Pathologist | | | | | At | Signature | + + + + + + | Hemoglobin | 7.9 (H)Comment: | 4.8 - 6.0 % | [facility] | | | A1c | HEMOGLOBIN A1C LEVELS | | HEALTHCARE | | | | ARE RELATED TO MEAN | | LAB | | | | BLOOD GLUCOSEDURING THE | | | | | | PRECEDING 2-3 MONTHS. | | | | | | THE RELATIONSHIP TABLE | | | | | | BELOW MAY BE USED A | | | | | | GENERAL GUIDE. | | | | | | HGB A1C | | | | | | APPROX. MEAN | | | | | | GLUCOSE | | | | | | | | | | | | | | | | | | ----- 6% | | | | | | | | | | | | 120 MG/DL 7% | | | | | | | | | | | | 150 MG/DL | | | | | | 8% | | | | | | 180 MG/DL | | | | | | 9% | | | | | | 210 | | | | | | MG/DL 10% | | | | | | | | | | | | 240 MG/DL | | | | + + + + + + + + | Specimen | + + | | + + + + + + + | Performing | Address | City/State/Zipcode | Phone Number | | Organization | | | | + + + + + | [facility] | [address] | [place], [place] | [phone] | | HEALTHCARE LAB | | [address] | | + + + + + | [facility] | | | [phone] | | HEALTHCARE LAB | | | | + + + + + Comprehensive Metabolic Panel (07/13/2012 8:30 AM PDT) + + + + + + | Component | Value | Ref Range | Performed | Pathologist | | | | | At | Signature | + + + + + + | Glucose | 178 (H) | 74 - 100 mg/dL | [facility] | | | | | | HEALTHCARE | | | | | | LAB | | + + + + + + | Na | 137 | 136 - 145 | [facility] | | | | | mmol/L | HEALTHCARE | | | | | | LAB | | + + + + + + | K | 4.2 | 3.5 - 5.1 | [facility] | [...] + + + + | CO2 | 26 | 21 - 32 mmol/L | [facility] | | | | | | HEALTHCARE | | | | | | LAB | | + + + + + + | Anion Gap | 9.0 | 5 - 15 mmol/L | [facility] | | | | | | [facility]ALTHCARE | | | | | | LAB | | + + + + + + | BUN | 14 | 7 - 18 mg/dL | [facility] | | | | | | HEALTHCARE | | | | | | LAB | | + + + + + + | Creatinine | 0.9 | 0.6 - 1.3 mg/dL | [facility] | | | | | | HEALTHCARE | | | | | | LAB | | + + + + + + | Glom Filt | > 60Comment: Reference | 60- | [facility] | | | Rate, Est | Range: > or = 60 | | HEALTHCARE | | | | mL/min/1.73 | | LAB | | | | m2(-German | | | | | | patient: multiply | | | | | | reported result by 1.21) | | | | + + + + + + | BUN/Creatin | 15.6 | 10 - 20 | [facility] | | | ine Ratio | | | HEALTHCARE | | | | | | LAB | | + + + + + + | Osmolality | 289 | 275 - 295 | [facility] | | | Calc | | | HEALTHCARE | | | | | | LAB | | + + + + + + | Calcium | 9.2 | 8.5 - 10.1 | [facility] | | | | | mg/dL | HEALTHCARE | | | | | | LAB | | + + + + + + | CORRECTED | 9.4 | mg/dL | [facility] | | | CALCIUM | | | HEALTHCARE | | | | | | LAB | | + + + + + + | Total | 7.4 | 6.4 - 8.2 gm/dL | [facility] | | | Protein | | | HEALTHCARE | | | | | | LAB | | + + + + + + | Albumin | 4.3 | 3.4 - 5.0 g/dL | [facility] | | | | | | [facility]ALTH[facility]ARE | | | | | | LAB | | + + + + + + | Globulin | 3.1 | 2.5 - 4.5 gm/dL | [facility] | | | | | | HEALTHCARE | | | | | | LAB | | + + + + + + | ELP A/G | 1.4 | 0.8 - 2.0 | [facility] | | | RATIO | | | HEALTHCARE | | | | | | LAB | | + + + + + + | Bilirubin | 0.6 | 0.2 - 1.0 mg/dL | [facility] | | | Total | | | HEALTHCARE | | | | | | LAB | | + + + + + + | Alkaline | 49 (L) | 50 - 136 U/L | [facility] | | | Phosphatase | | | HEALTHCARE | | | | | | LAB | | + + + + + + | ALT | 20 | 12 - 78 U/L | [facility] | | | | | | HEALTHCARE | | | | | | LAB | | + + + + + + | AST | 13 | 8 - 34 U/L | [facility] | | | | | | HEALTHCARE | | | | | | LAB | | + + + + + + + + | Specimen | + + | | + + + + + + + | Performing | Address | City/State/Zipcode | Phone Number | | Organization | | | | + + + + + | [facility] | [address] | [place], [place] | [phone] | | HEALTHCARE LAB | | [address] | | + + + + + | [facility] | | | [phone] | | HEALTHCARE LAB | | | | + + + + + Microalbumin/Creatinine Ratio, Urine (07/13/2012 8:30 AM PDT) + + + + + + | Component | Value | Ref Range | Performed | Pathologist | | | | | At | Signature | + + + + + + | Microalbumi | <5.0Comment: BELOW | mg/L | [facility] | | | n, Urine | ASSAY RANGE. UNABLE TO | | HEALTHCARE | | | | CALCULATE RATIO | | LAB | | + + + + + + | Creatinine, | 108.3 | mg/dL | [facility] | | | Urine | | | HEALTHCARE | | | | | | LAB | | + + + + + + + + | Specimen | + + | | + + + + + + + | Performing | Address | City/State/Zipcode | Phone Number | | Organization | | | | + + + + + | [facility] | [address] | [place], [place] | [phone] | | HEALTHCARE LAB | | [address] | | + + + + + | [facility] | | | [phone] | | HEALTHCARE LAB | | | | + + + + + documented in this encounter Visit Diagnoses Not on filedocumented in this encounter"
--- OUTSIDE RECORDS SUMMARY | ~2020-08-23 | XMS | Encounter Summary ---
Demographics + + + | Address | [address] | | | [place] [address] | + + + | Home Phone | | + + + | Preferred Language | Unknown | + + + | Marital Status | Single | + + + | Rastafarian Affiliation | 1077 | + + + | Race | White | + + + | Ethnic Group | Not or | + + + Author + + + | Author | [facility] | | | and [place] | + + + | Organization | [facility] | | | and [place] | + + + | Address | Unknown | + + + | Phone | Unavailable | + + + Support + + + + + | Name | Relationship | Address | Phone | + + + + + | Melisa Simpson | ECON | [address] | | | | | [place], | | | | | [place] [address] | | + + + + + | Osmel Simpson | ECON | [address] | | | | | [place] [address] | | + + + + + Care Team Providers + +------+ + | Care Coding Director Name | Role | Phone | + +------+ + PCP | Unavailable | + +------+ + Encounter Details +--------+ + + + + | Date | Type | Department | Care Team | Description | +--------+ + + + + | 04/23/ | Hospital | [facility] | Yovani De La Fuente, | | | 1994 - | Encounter | MED [facility] | [address] [facility] | | | | | [address] [place] | [place], [place] | | | | | [place] [address] | [address] | | | 1994 | | [phone] | | | +--------+ + + + [...]
--- OUTSIDE RECORDS SUMMARY | ~2020-08-23 | XMS | Encounter Summary ---
Demographics + + + | Address | [address] | | | [place] [address] | + + + | Home Phone [...] | Author | [facility] | | | and [place] | [...] Melisa Simpson | ECON | [address] | | | | | [place] | | | | | [place] [address] | | + + + + + | Osmel Simpson | ECON | [address] | | | | | [place] [address] | | + + + + + Care Team Providers + +------+ + | Care Bakery Machine Mechanic Name | Role | Phone | + +------+ + | Félix Li MD | PCP | | + +------+ + Reason for Visit + +--------+ + | Reason | Onset | Comments | | | Date | | + +--------+ + | Medication Refill | 09/05/ | | | | 2012 | | + +--------+ + Encounter Details +--------+--------+ + + + | Date | Type | Department | Care Team | Description | +--------+--------+ + + + | 09/05/ | Refill | [facility] | Félix Li MD | Medication Refill | | 2012 | | [facility]ALTHCARE INTERNAL | [address] | | | | | MEDICINE [address] | [address] | | | | | [place] | [place] [address] | | | | | [place] | [phone] | | | | | [address] | | | | | | [phone] | | | +--------+--------+ + + + [...] Notes Telephone Encounter - Leisa Galarza - 09/05/2013 11:47 AM PDTFormatting of this note migh t be different from the original. Requested Prescriptions Pending Prescriptions Disp Refills lisinopril (PRINIVIL, ZESTRIL) 10 mg tablet Sig: Take 1 tablet by mouth Daily. 08/03/2013 Thanks, Leisa Galarza documented in this encoun ter Plan of Treatment Not on filedocumented as of this encounter Visit Diagnoses Not on filedocumented in this encounter"
--- OUTSIDE RECORDS SUMMARY | ~2020-08-23 | XMS | Encounter Summary ---
Demographics + + + | Address | [address] | | | [place] [address] | + + + | Home Phone | | + + + | Preferred Language | Unknown | + + + | Marital Status | Single | + + + | Islam Affiliation | 1077 | + + + | Race | White | + + + | Ethnic Group | Not or | + + + Author + + + | Author | [facility] | | | and [place] [...] Melisa Simpson | ECON | [address] [facility] | | | | | [place], | | | | | [place] [address] | | + + + + + | Osmel Simpson | ECON | [address] | | | | | [place] [address] | | + + + + + Care Team Providers + +------+ + | Care Herb Doctor Name | Role | Phone | + +------+ + PCP | Unavailable | + +------+ + Encounter Details +--------+ + + + + | Date | Type | Department | Care Team | Description | +--------+ + + + + | 04/12/ | Hospital | [facility] | | | | 1992 | Encounter | [facility] | | | | | | CENTER [address] | | | | | | [place] | | | | | | [address] | | | | | | [phone] | | | +--------+ + + + [...]
--- OUTSIDE RECORDS SUMMARY | ~2020-08-23 | XMS | Encounter Summary ---
Demographics + + + | Address | [address] | | | [place] [address] | + + + | Home Phone | | + + + | Preferred Language | Unknown | + + + | Marital Status | Single | + + + | Alevism Affiliation | 1077 | + + + | Race | White | + + + | Ethnic Group | Not or | + + + Author + + + | Author | [facility] | | | and [place] | + + + | Organization | [facility] | | | and [place] | + + + | Address | Unknown | + + + | Phone | Unavailable | + + + Support + + + + + | Name | Relationship | Address | Phone | + + + + + | Melisa Simpson | ECON | [address] | | | | | [place] | | | | | [place] [address] | | + + + + + | Osmel Simpson | ECON | [address] | | | | | [place] [address] | | + + + + + Care Team Providers + +------+ + | Care Reimbursement Rep Name | Role | Phone | + [...] Description | +--------+--------+ + + + | 12/17/ | Refill | [facility] | Félix Li MD | Medication Refill | | 2013 | | [facility] | [address] [facility] | | | | | [address] [facility] | [address] [place], | | | | | [address] [facility] [address] | | | | | [place], [place] | [phone] | | | | | [address] | | | | | | [phone] | | | +--------+--------+ + + + [...] this encounter Miscellaneous Notes Telephone Encounter - Nathalia Nice RN - 12/17/2013 3:56 PM PSTFormatting of this not e might be different from the original. Last Office Visit with You: 09/05/13. Bot looks like labs are due. Required Labs: Lab Results Component Value Date TRIG 62 07/13/2012 HDL 91* 07/13/2012 Lab Results Component Value Date ALT 20 07/13/2012 documented in this encounter Plan of Treatment Not on filedocumented as of this encounter Visit Diagnoses Not on filedocumented in this encounter"
--- OUTSIDE RECORDS SUMMARY | ~2020-08-23 | XMS | Encounter Summary ---
Demographics + + + | Address | [address] | | | [place] [address] | + + + | Home Phone [...] Author + + + | Author | [facility] | | | and [place] | + + + | Organization | [facility] | | | and [place] | + + + | Address | Unknown | + + + | Phone | Unavailable | + + + Support + + + + + | Name | Relationship | Address | Phone | + + + + + | Melisa Simpson | ECON | [address] | | | | | [place] | | | | | [place] [address] | | + + + + + | Osmel Simpson | ECON | [address] | | | | | [place] [address] | | + + + + + Care Team Providers + +------+ + | Care Junior Network Administrator Name | Role | Phone | + [...] Description | +--------+--------+ + + + | 09/16/ | Refill | [facility] | Félix Li MD | Medication Refill | | 2012 | | HEALTHCARE INTERNAL | [address] | | | | | MEDICINE [address] | [address] | | | | | [place] | [place] [address] | | | | | [place] | [phone] | | | | | [address] | | | | | | [phone] | | | +--------+--------+ + + + [...]
--- OUTSIDE RECORDS SUMMARY | ~2020-08-23 | XMS | Clinical Summary ---
Demographics + + + | Address | [address] | | | [place] [address] | + + + | Home Phone | | + + + | Preferred Language | Unknown | + + + | Marital Status | Single | + + + | Jew Affiliation | 1077 | + + + | Race | White | + + + | Ethnic Group | Not or | + + + Author + + + | Author | [facility] | | | and [place] | + + + | Organization | [facility] | | | and [place] | + + + | Address | Unknown | + + + | Phone | Unavailable | + + + Support + + + + + | Name | Relationship | Address | Phone | + + + + + | Melisa Simpson | ECON | [address] [facility] | | | | | [place], | | | | | [place] [address] | | + + + + + | Osmel Simpson | ECON | [address] | | | | | [place] [address] | | + + + + + Care Team Providers + +------+ + | Care Hand Tennis Ball Coverer Name | Role | Phone | + +------+ + PCP | Unavailable | + +------+ + Allergies No Known Allergies Medications + + + +---------+------+------+-------+ | Medication | Sig | Dispensed | Refills | Star | End | Statu | | | | | | t | Date | s | | | | | | Date | | | + + + +---------+------+------+-------+ | Saline 0.9 % | by Nasal route. | | 0 | | | Activ | | (BEENA) PATRICIAN | | | | | | e | + + + +---------+------+------+-------+ | erythromycin | 3 times daily. | | 0 | | | Activ | | ophthalmic ointment | | | | | | e | + + + +---------+------+------+-------+ | Insulin | by Does not apply | | 0 | | | Activ | | Syringe-Needle U-100 | route. | | | | | e | | 30G X 5/16" 0.3 ML | | | | | | | | MISC | | | | | | | + + + +---------+------+------+-------+ | Multiple Vitamin | Take by mouth. | | 0 | | | Activ | | (MULTI-VITAMIN PO) | | | | | | e | + + + +---------+------+------+-------+ | aspirin 81 mg EC | Take 81 mg by mouth | | 0 | | | Activ | | tablet | Daily. | | | | | e | + + + +---------+------+------+-------+ | LANTUS 100 UNIT/ML | INJECT 22 UNIT | 30 mL | 1 | 10/2 | | Activ | | injection | SUBCUTANEOUSLY EVERY | | | 2/20 | | e | | | EVENING | | | 13 | | | + + + +---------+------+------+-------+ | atorvaSTATin | TAKE ONE TABLET BY | 90 | 3 | 01/2 | | Activ | | (LIPITOR) 20 mg | MOUTH AT BEDTIME | tablet | | 2/20 | | e | | tablet | | | | 14 | | | + + + +---------+------+------+-------+ | PARVEEN CONTOUR NEXT | TEST BLOOD SUGAR 4 | 100 | 6 | 02/25 | | Activ | | TEST | TIMES A DAY | each | | 05/15 | | e | | stripIndications: | | | | 14 | | | | Type I (juvenile | | | | | | | | type) diabetes | | | | | | | | mellitus without | | | | | | | | mention of | | | | | | | | complication, not | | | | | | | | stated as | | | | | | | | uncontrolled | | | | | | | + + + +---------+------+------+-------+ | lisinopril | TAKE ONE TABLET BY | 90 | 1 | 02/25 | | Activ | | (PRINIVIL, ZESTRIL) | MOUTH EVERY DAY. | tablet | | 05/15 | | e | | 10 mg | | | | 14 | | | | tabletIndications: | | | | | | | | Unspecified | | | | | | | | essential | | | | | | | | hypertension | | | | | | | + + + +---------+------+------+-------+ | insulin aspart | As of 05/05/2014: FOR | 10 mL | 2 | 07/0 | | Activ | | (NOVOLOG) 100 | EVERY 25 POINTS | | | 1/20 | | e | | units/mL injection | BLOOD SUGAR > 150 | | | 14 | | | | | TAKE 1 UNIT, PLUS | | | | | | | | FOR EVER 12 CA RBS | | | | | | | | TAKE 1 UNIT. 3 | | | | | | | | TIMES DAILY | | | | | | + + + +---------+------+------+-------+ Active Problems + + + | Problem | Noted Date | + + + | Diabetes mellitus type 1 | | + + + + + | Overview: 1986 | + + + +---+ | Hyperlipidemia | | + +---+ | Hypertension | | + +---+ Immunizations + + + + | Name | Administration Dates | Next Due | + + + + | INFLUENZA PF 19 Y OR | 09/05/2013 | | | >,TRIVALENT | | | | RECOMBINANT | | | + + + + Family History + + + + + | Medical History | Relation | Name | Comments | + + + + + | Diabetes | Brother | | | + + + + + | Diabetes | Father | | | + + + + + | Diabetes | Other | Paternal | | | | | side | | + + + + + | High blood pressure | Other | Paternal | | | | | side | | + + + + + | Heart disease | Paternal | | | | | Grandfath | | | | | er | | | + + + + + + + +--------+ + | Relation | Name | Status | Comments | + + +--------+ + | Brother | | | | + + +--------+ + | Father | | | | + + +--------+ + | Other | Paternal | Alive | | | | side | | | + + +--------+ + | Paternal Grandfather | | | | + + +--------+ + Social History + +-------+ +--------+------+ | Tobacco Use | Types | Packs/Day | Years | Date | | | | | Used | | + +-------+ +--------+------+ | Never Smoker | | | | | + +-------+ +--------+------+ + +---+---+---+ | Smokeless Tobacco: | | | | | Never Used | | | | + +---+---+---+ + + +---------+ + | Alcohol Use | Drinks/Week | oz/Week | Comments | + + +---------+ + | Yes | | | 3 drinks per week | + + +---------+ + + + + | Sex Assigned at | Date Recorded | | | | + + + | Not on file | | + + + Last Filed Vital Signs + + + + + | Vital Sign | Reading | Time Taken | Comments | + + + + + | Blood Pressure | 136/81 | 06/21/2018 7:28 AM | | | | | PDT | | + + + + + | Pulse | 81 | 10/02/2013 10:18 AM | | | | | PST | | + + + + + | Temperature | 36.4 C (97.6 F) | 09/05/2013 8:26 AM | | | | | PDT | | + + + + + | Respiratory Rate | 16 | 09/05/2013 8:26 AM | | | | | PDT | | + + + + + | Oxygen Saturation | 99% | 10/02/2013 10:18 AM | | | | | PST | | + + + + + | Inhaled Oxygen | - | - | | | Concentration | | | | + + + + + | Weight | 76.2 kg (168 lb) | 06/21/2018 7:28 AM | | | | | PDT | | + + + + + | Height | 172.7 cm (5' 8") | 06/21/2018 7:28 AM | | | | | PDT | | + + + + + | Body Mass Index | 25.54 | 06/21/2018 7:28 AM | | | | | PDT | | + + + + + Plan of Treatment + + + + + | Health Maintenance | Due Date | Last | Comments | | | | Done | | + + + + + | Vaccine: Influenza | | 10/25/20 | | | (#1) | 0 | 17, | | | | | 09/05/20 | | | | | 13 | | + + + + + | Vaccine: | | 05/31/20 | | | Dtap/Tdap/Td (2 - | 5 | 15 | | | Td) | | | | + + + + + Results Not on filefrom Last 3 Months Insurance +---------+--------+ +--------+ +---------+------+ | Payer | Benefi | Subscriber | Effect | Phone | Address | Type | | | t Plan | ID | elissa | | | | | | / | | Dates | | | | | | Group | | | | | | +---------+--------+ +--------+ +---------+------+ | PREMERA | PREMER | [id number] | 11/26/19 | [phone] | | PPO | | | A | 5 | 13-Pre | 0 | | | | | PREFER | | sent | | | | | | RED | | | | | | +---------+--------+ +--------+ +---------+------+ + +--------+ +--------+ + + | Guarantor Name | Accoun | Relation to | Date | Phone | Billing Address | | | t Type | Patient | of | | | | | | | | | | + +--------+ +--------+ + + | CalvinOsmel | Person | Self | [birth year] | [address] | [place] [address] | al/Fam | | 1980 | [phone] | [place] [address] | | | riky | | | 8 (Home) | | | | | | | [phone] | | | | | | | 1 (Work) | | + +--------+ +--------+ + + Advance Directives + + + + + | Type | Date Recorded | Patient | Explanation | | | | Bow String Maker | | + + + + + | Power of | | | | | Face Burler | | | | + + + + + | Advance | | | | | Directive | | | | + + + + +
--- OUTSIDE RECORDS SUMMARY | ~2020-08-23 | XMS | Encounter Summary ---
Demographics + + + | Address | [address] | | | [place] [address] | + + + | Home Phone | | + + + | Preferred Language | Unknown | + + + | Marital Status | Single | + + + | Faith Affiliation | 1077 | + + + | Race | White | + + + | Ethnic Group | Not or | + + + Author + + + | Author | [facility] | | | and [place] | + + + | Organization | [facility] | | | and [place] | + + + | Address | Unknown | + + + | Phone | Unavailable | + + + Support + + + + + | Name | Relationship | Address | Phone | + + + + + | Melisa Simpson | ECON | [address] [facility] [facility] | | | | | [place], | | | | | [place] [address] | | + + + + + | Osmel Simpson | ECON | [address] | | | | | [place] [address] | | + + + + + Care Team Providers + +------+ + | Care Pediatrician Name | Role | Phone | + +------+ + PCP | Unavailable | + +------+ + Encounter Details +--------+ + + + + | Date | Type | Department | Care Team | Description | +--------+ + + + + | 02/10/ | Hospital [facility] | | | | [facility] | Encounter | [facility] | | | | | | CENTER [address] | | | | | | [place] | | | | | | [address] | | | | | | [phone] | | | +--------+ + + + [...]
--- OUTSIDE RECORDS SUMMARY | ~2020-08-23 | XMS | Encounter Summary ---
Demographics + + + | Address | [address] | | | [place] [address] | + + + | Home Phone | | + + + | Preferred Language | Unknown | + + + | Marital Status | Single | + + + | Restoration Affiliation | 1077 | + + + | Race | White | + + + | Ethnic Group | Not or | + + + Author + + + | Author | [facility] | | | and [place] | + + + | Organization | [facility] | | | and [place] | + + + | Address | Unknown | + + + | Phone | Unavailable | + + + Support + + + + + | Name | Relationship | Address | Phone | + + + + + | Melisa Simpson | ECON | [address] | | | | | [place] | | | | | [place] [address] | | + + + + + | Osmel Simpson | ECON | [address] | | | | | [place] [address] | | + + + + + Care Team Providers + +------+ + | Care Enamel Applier Name | Role | Phone | + +------+ + | Félix Li MD | PCP | | + +------+ + Reason for Referral Evaluate & Treat (Routine) +--------+ + + + + + | Status | Reason | Specialty | Diagnoses / | Referred By | Referred To | | | | | Procedures | Contact | Contact | +--------+ + + + + + | Closed | Specialty | Behavioral | Diagnoses | Li, | | | | Services | Health | Adjustment | Félix Del Rosario MD | | | | Required | | disorder | [address] | | | | | | with anxious | [address] | | | | | | mood | [address] | | | | | | | [place] | | | | | | | [place] | | | | | | | [address] | | | | | | | Phone: | | | | | | | [phone] | | | | | | | Fax: | | | | | | | [phone] | | +--------+ + + + + + Evaluate & Treat (Routine) +--------+ + + + + + | Status | Reason | Specialty | Diagnoses / | Referred By | Referred To | | | | | Procedures | Contact | Contact | +--------+ + + + + + | Closed | Specialty | Physician | Diagnoses | Li, | Ameya, | | | Services | Director Of Managed Care / | HPV (human | Félix Del Rosario MD | Amee Ayala, | | | Required | Family | papilloma | [address] | [place] | | | | Medicine | virus) | [address] | [address] [facility] | | | | | infection | [address] | [address] | | | | | | [place] | [place] | | | | | | [place] | [address] Phone: | | | | | | [phone] | [phone] | | | | | | Phone: | Fax: | | | | | | [phone] | [phone] | | | | | | Fax: | | | | | | | [phone] | | +--------+ + + + + + Reason for Visit + + + | Reason | Comments | + + + | Diabetes | DM follow up needs lab orders | + + + | Flu Vaccine | vaccine requested | + + + Encounter Details +--------+---------+ + + + | Date | Type | Department | Care Team | Description | +--------+---------+ + + + | 09/05/ | Office | [place] | Félix Li MD | Flu vaccine need | | 2013 | Visit | [facility] | [address] | (Primary Dx); | | | | MEDICINE [address] | [address] [place], | Diabetes mellitus | | | | [address] | [place] [address] | type 1 (HCC); | | | | [place] | [phone] | Hypertension; | | | | [address] | | Adjustment disorder | | | | [phone] | | with anxious mood; | | | | | | HPV (human papilloma | | | | | | virus) infection | +--------+---------+ + + + Social History [...] + + + | Blood Pressure | 122/64 | 09/05/2013 8:26 AM | | | | | PDT | | + + + + + | Pulse | 80 | 09/05/2013 8:26 AM | | | [...] + | Oxygen Saturation | 99% | 09/05/2013 8:26 AM | | | | | PDT | | + + + + + | Inhaled Oxygen | - | - | | | Concentration | | | | + + + + + | Weight | 71.7 kg (158 lb) | 09/05/2013 8:26 AM | | | | | PDT | | + + + + + | Height | - | - | | + + + + + | Body Mass Index | - | - | | + + + + + documented in this encounter Patient Instructions Patient Instructions Félix Li MD - 09/05/2013 9:02 AM PDTWe will contact you about labs Counselor referral made We can refer to a different named account executive if you wish September 05, 2013 Osmel Simpson [facility] [address] Dear Osmel: Thank you for enrolling in Hooked. Please follow the instructions below to view your [employer] online medical record. Hooked allows you to send secure messages to your doctor, view you r test results, renew your prescriptions, schedule appointments, and more. How Do I Sign Up? 1. In your Internet browser, go to [email or web address] 2. Click on the Sign Up Now link in the Sign In box. This will take you to [facility] Up page. 3. Enter your Hooked access code exactly as it appears below. You will not need to use this code after you sign up. If you do not sign up before the expiration date, you must requ est a new code through your [facility]. Hooked Access Code: [email or web address] Expires: 11/04/2013 9:03 4. Fill in the last four digits of your Social Security Number (xxxx) and Date of (mm/dd/yyyy) when asked and click Submit. You will now be asked to create a Hooked ID. 5. Create a Hooked ID. This will be your Hooked login ID. Your login ID cannot be mcclure ged, so think of one that is secure and easy to remember. 6. Create a Hooked password. You can change your password at any time. 7. Enter your Password Reset Question and Answer. This can be used at a later time if yo u forget your password. 8. Enter your e-mail address. You will receive e-mail notification when new information is available in Meshfiret. 9. Click Sign Up. You may now view your medical record. Additional Information If you have questions, you can email [email or web address] or call [phone] to talk to our [facility] care team. Please remember, Cook[facility] should NOT be used fo r urgent needs. For all medical emergencies, call 911. Sincerely, Félix Li MD documented in this encounter Progress Notes Félix Li MD - 09/05/2013 8:45 AM PDT Osmel Calvin Chief Complaint Patient presents with Diabetes DM follow up needs lab orders Flu Vaccine vaccine requested Subjective: Diabetes Mellitus Type I, Follow-up: Patient here for follow-up evaluation of Type 1 diabet es mellitus. The initial diagnosis of diabetes was made at 5 years. His somewhat higher than normal. Insulin dosage review with Osmel suggested compliance al l of the time. Associated symptoms of hyperglycemia have been agitation. Associated symptom s of hypoglycemia have been dizziness. He is currently taking Novolog sliding scale units units pre-breakfast, Novolog SS units un its pre-lunch, Novolog SS units units pre-dinner, and Lantus 18 units units at bedtime. Ins ulin injections are given by patient. Compliance with blood glucose monitoring: excellent. The patient does perform independently. Exercise: rarely Meal panning: He is using carbohydrate counting. Blood glucose times and ranges: Breakfast 120-130 Dinner 180-250 Under a great deal of stress at work- funding issues, especially. New baby due in the winte r affecting home life. Having a lot of trouble sleeping- 6 hours at most- related to son up in night.Able to get back to sleep. No particular coping skills used. Some anger issues whic h have caused problems recently. Has worked with couples and individual counselors in past. On antidepressants in distant past- not wanting to consider meds yet. Also notes persistent warts on penis- HPV treated but still has couple of lesions. Wishes r eferral. Patient Active Problem List Diagnosis Date Noted POA Diabetes mellitus type 1 Unknown Hyperlipidemia Unknown Hypertension Unknown History Social History Marital Status: Spouse Name: N/A Number of Children: N/A Years of Education: N/A Social History Main Topics Smoking status: Never Smoker Smokeless tobacco: None Alcohol Use: Yes 3 drinks per week Drug Use: No Sexually Active: None Other Topics Concern None Social History Narrative None Current Outpatient Prescriptions Medication Status Sig Dispense Refill aspirin 81 mg EC tablet Active Take 81 mg by mouth Daily. atorvaSTATin (LIPITOR) 20 mg tablet Active Take 1 tablet by mouth nightly. 90 tablet 0 erythromycin ophthalmic ointment Active 3 times daily. glucose blood test strips (PARVEEN CONTOUR TEST) strip Active QID testing Insulin depe ndent 250.02 100 each 3 insulin aspart (NOVOLOG) 100 units/mL injection Active For every 25 points blood sugar > 150 take 1 unit, plus for ever 12 carbs take 1 unit. 3 times daily before meals. 20 mL 3 insulin glargine (LANTUS) 100 units/mL injection Active Inject 18 Units under the skin nightly. Insulin Syringe-Needle U-100 30G X 5/16" 0.3 ML MISC Active by Does not apply route. lisinopril (PRINIVIL, ZESTRIL) 10 mg tablet Active Take 10 mg by mouth Daily. Multiple Vitamin (MULTI-VITAMIN PO) Active Take by mouth. Saline 0.9 % (SOLN) SOLN Active by Nasal route. No Known Allergies Objective: BP 122/64 | Pulse 80 | Temp 36.4 C (97.6 F) (Oral) | Resp 16 | Wt 71.668 kg (158 lb) | SpO2 99% Alert cooperative. Speech is not pressured with normal content. Patient appears fairly an xious, wringing his hands through much of the interview. Good eye contact. Assessment/Plan: Osmel was seen today for diabetes and flu vaccine. Diagnoses and associated orders for this visit: Flu vaccine need - Flu vaccine greater than or equal to 3yo preservative free Diabetes mellitus type 1 Hypertension Adjustment disorder with anxious mood Blood sugars have been less well controlled recently by his report. Discussed benefits of the low level regular daily exercise and stress reduction. Patient reports a number of stressors at this time, unlikely to improve over the next sever al months. He declines medication treatment at this time, but is willing to consider if he is having difficulty making progress with a counselor. The referral for counseling was made today, and several alternatives in the area were provided to him. 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 A referral is made for treatment. Also discussed setting him up for Internet access so he can communicate with us directly. Sign up instructions given today. The full extent of this 25 minute visit spent in counseling today. We will contact you about labs Counselor referral made We can refer to a different named account executive if you wish documented in this enc ounter Plan of Treatment + + +--------+ + + | Name | Type | Priori | Associated Diagnoses | Order Schedule | | | | ty | | | + + +--------+ + + | Ambulatory referral | Outpatient | Routin | HPV (human | Ordered: 09/05/2013 | | to Dermatology | Referral | e | papilloma virus) | | | | | | infection | | + + +--------+ + + | Ambulatory referral | Outpatient | Routin | Adjustment | Ordered: 09/05/2013 | | to Behavioral Health | Referral | e | disorder with | | | | | | anxious mood | | + + +--------+ + + documented as of this encounter Results Microalbumin/Creatinine Ratio, Urine (09/05/2013 [...] + + + | [facility] | [address] [facility] | [place], [place] | [phone] | | HEALTHCARE LAB | | [address] | | + + + + + [...] | non- | FILTRATION | mL/min/1.73m2 | [facility] | | | Tristanian | RATE,ESTIMATED | | LAB | | | | mL/min/1.12e6Xoey than | | | | | | [...] + + + | [facility] | [address] [facility] | [place], [place] | [phone] | | HEALTHCARE LAB | | [address] | | + + + + + [...] + + + | [facility] | [address] [facility] | [place], [place] | [phone] | | HEALTHCARE LAB | | [address] | | + + + + + documented in this encounter Visit Diagnoses + + | Diagnosis | + + | Flu vaccine need - Primary Need for prophylactic vaccination and inoculation against | | influenza | + + | Diabetes mellitus type 1 (HCC) Type I (juvenile type) diabetes mellitus without | | mention of complication, not stated as uncontrolled | + + | Hypertension Unspecified essential hypertension | + + | Adjustment disorder with anxious mood Adjustment disorder with anxiety | + + | HPV (human papilloma virus) infection Human papillomavirus in conditions classified | | elsewhere and of unspecified site | + + documented in this encounter
--- OUTSIDE RECORDS SUMMARY | ~2020-08-23 | XMS | Encounter Summary ---
Demographics + + + | Address | [address] | | | [place] [address] | + + + | Home Phone [...] Author + + + | Author | [facility] | | | and [place] | + + + | Organization | [facility] | | | and [place] | + + + | Address | Unknown | + + + | Phone | Unavailable | + + + Support + + + + + | Name | Relationship | Address | Phone | + + + + + | Melisa Simpson | ECON | [address] | | | | | [place] | | | | | [place] [address] | | + + + + + | Osmel Simpson | ECON | [address] | | | | | [place] [address] | | + + + + + Care Team Providers + +------+ + | Care [facility]ship Name | Role | Phone | + +------+ + | Félix Li MD | PCP | | + +------+ + Encounter Details +--------+ + + + + | Date | Type | Department | Care Team | Description | +--------+ + + + + | 09/03/ | Abstract | [facility] | Félix Li MD | | | 2012 | | [facility] | [address] | | | | | MEDICINE [address] | [address], | | | | | [place] | [place] [address] | | | | | [place] | [phone] | | | | | [address] | | | | | | [phone] | | | +--------+ + + + [...]
--- OUTSIDE RECORDS SUMMARY | ~2020-08-23 | XMS | Encounter Summary ---
Demographics + + + | Address | [address] | | | [place] [address] | + + + | Home Phone | | + + + | Preferred Language | Unknown | + + + | Marital Status | Single | + + + | Jain Affiliation | 1077 | + + + | Race | White | + + + | Ethnic Group | Not or | + + + Author + + + | Author | [facility] | | | and [place] [...] PARK | | | | | [place], | | | | | [place] [address] | | + + + + + | Osmel Simpson | ECON | [address] | | | | | [place] [address] | | + + + + + Care Team Providers + +------+ + | Care Training Assistant Name | Role | Phone | + +------+ + PCP | Unavailable | + +------+ + Encounter Details +--------+ + + + + | Date | Type | Department | Care Team | Description | +--------+ + + + + | 02/23/ | Hospital | [facility] | Edilia Chapman | | | 2010 | Encounter | [facility] EMERGENCY | MD Danielle [address] | | | | | CENTER [address] | [address] [place], | | | | | [place], [place] | [place] [address] | | | | | [address] | [phone] | | | | | [phone] | | | +--------+ + + + [...] + + documented as of this encounter ED Notes Edilia Chapman MD - 02/23/2011 1:01 PM PDTDATE: 02/23/2011 CHIEF COMPLAINT: Unusual movements. HISTORY OF PRESENT ILLNESS: This is a 30-year-old male who comes ambulatory to the emergen cy department. I first learned about the patient in call ahead from physician at [facility]. She indicates the patient has a history of insulin dependent diabetes. He presented with some unusual mov ements and complained of headache as well as nosebleeds. She requested we evaluate the patient for pot ential terrell nous etiology. The patient's chief complaint here is recent "migraines." He describes these as t he whole h ead headache associated with a sense of a squeezing sensation, nausea, and light sensitivity. Maia baker has no p revious diagnosis of migraines, does not have a family history of those. He indicates it is mildly worse righ t side compared to the left side but is definitely bilateral. He was initially seen for this at [facility]. At that time, he had some lightheadedness and a spinning sensation. He was given some hydrocodone a nd meclizi ne; that was on Sunday. Sunday evening he had the onset of some diffuse trembling. His adela harris is similar to what he would have with low blood glucose. However, his glucose was normal. For THE last 3 days, he has had increasing movements involving his head, torso, and extremities. He indicates it seems to increase when he relaxes, but he is able to minimize it with purposeful movements. He indicates his glucose watkins s been well controlled. He has never had anything like this before. He did have an ill contact and was on Ta miflu prophylaxis a week ago. He indicates he had only a minor sore throat and runny nose, but ne luis a devfaye ped any febrile illness. He has never had anything like this before. PAST MEDICAL HISTORY: Insulin dependent diabetes. MEDICATIONS 1. Meclizine and hydrocodone which are new to the patient. 2. He was previously on Tamiflu , he has completed that. 3. Lipitor. 4. Lisinopril. 5. Aspirin. ALLERGIES: NO KNOWN DRUG ALLERGIES. REVIEW OF SYSTEMS: He indicates he has been n.p.o. since 9 this morning. He denies any tra ana. He de nies any falls or hits to the head. He indicates he always has a little bit of neck discomfort a nd "tensen ess" but denies any previous history of intense neck pain. He has not had any previous problems with nausea or vomiti ng. He denies any abdominal pain. He has not had any recent vaccinations. He denies any extremity weakness associated with this, but it proved to be quite disruptive. He does have ongoing h eadache here. He in dicates he has a history of anxiety problems and not been particularly stressed. Recent URI symptoms a s above. Maia baker did not get an influenza vaccine in 2009. No recent vaccinations. He indicates his glucose has been 90 to 150 . Ten- point review of systems as above, otherwise negative. PHYSICAL EXAMINATION VITAL SIGNS: Temperature 98.4, respirations 18, heart rate 123, blood pressure 150/64, O2 saturation 95% on room air, 70 kg. GENERAL: Thin, young male who is well dressed and seated quietly on the ED gurde borgia. SKIN: Warm, dry. No rash. HEENT: Head normocephalic, atraumatic. Pupils equal, round, reactive to light. Extraocular movements are intact. No nystagmus. Tympanic membranes are clear bilaterally. Mild rim of tonsillar eryth chayito. No fr ank exudate. No enlargement. No cervical lymphadenopathy. HEART: Mildly tachycardiac rate, regular rhythm. LUNGS: Clear to auscultation throughout bilaterally. ABDOMEN: Soft, nontender. NEUROLOGIC: The patient is awake, alert, oriented. He makes excellent eye contact. His aff ect is nor mal. His speech is fluent. He has no facial asymmetry or droop. His hearing is normal. Tongue is mid line. Uvul a elevates symmetrically. Motor 5/5, all extremities. He has high-frequency and migratory twitching so metimes of his head, sometimes of his torso, sometimes his bilateral upper extremities, almost has the amy earance of akathisia as would be seen with psychotropic medications (he is not on any). He seems to have the jonelle lity to co ntrol movements only for a short period of seconds. It does not seem to improve with distraction. He is abl e to perform fairly normal zjwnuu-zt-bray testing as far as accuracy, touching fyfgjk-qt-kpnt wi th some si gnificant wide variation in between. EMERGENCY DEPARTMENT COURSE: The patient presents with an unusual symptomatology. We went ahead and checked a noncontrast CT of the head as well as CBC, comprehensive panel, coags r egarding t he history of nosebleeds (his nose is clear). Rapid strep was added on; this was negative. He was given a liter of normal saline IV and some Ativan to try and help facilitate CT. However, there was still de finite mov ement on the imaging. Radiologist indicates that it is 90% certain that there is no intracranial hem orrhage or mass. However, there has to be a shade of doubt given the fairly extensive movement. His lab work was unrev ealing. His medication list does not include any psychotropics. His white count is normal at 8.0, h emoglobin normal, platelet count normal at 254, INR normal at 1.0, and PTT at 28, serum electrolytes normal, random glu cose 123. His nursing paperwork indicates his glucose on arrival was in the 40s, but I believe this w as spuriou s or misdocumented. His LFTs are normal. TSH returned low normal at 0.53 and CRP undetectable. I talked with Dr. Bellamy from Neurology about the patient's current symptoms. He is willing to see th e patient in the Outpatient Clinic for followup given this unusual presentation for definitive nelsy gMarta I discu ssed with the patient procedural sedation for MRI. He consents to this. He should have an MRI of the brai n with and without gadolinium contrast. I talked with the radiologist about overseeing procedural sedation and he indica wilfredo it seems more likely the patient would need to undergo general anesthesia. I do think this is in the patient's best interest given the potential for serious pathology. His young age warrants ruling that out. I think MRI is lik len to be reassuring but should be completed. His is especially eager to have this completely wo rked up. 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 At this point, Dr. Fuller from Anesthesia will perform anesthesia care and the patient will be transpo rted to MR. Paperwork was completed regarding his outpatient followup. He is advised he needs to avoid use of any new medications and was written a note off of work. Dr. Bellamy will be seeing him at lunchtime tomorrow i n followup. Results of the MRI will be received by the oncoming emergency physician who will discharge the patient if it seems appropriate based on those results. IMPRESSION: NEW ONSET CHOREOATHETOSIS, AT THIS POINT UNCLEAR ETIOLOGY. DICTATED BY: Edilia Chapman MD Emergency Medicine JOB #: [id number] EXT JOB #:[id number] EDITED: 03/02/2011 08:00 cc: Yovani Bellamy MD [facility] <Electronically Signed by Edilia Chapman MD> 05/09/11 2305 Carl Mendes MD - 02/23/2011 1:01 PM PDTDATE: 02/23/2011 ADDENDUM: Please see Dr. Chapman's notes for initial history, physical exam , as well as ER course. She initially evaluated the patient. I did follow up on the patient's MRI which was negative h ere as per Dr. Quezada. He has an appointment scheduled with Dr. Bellamy tomorrow. He is to keep that as planned. R eturn for worsening symptoms, other complaints. DICTATED BY: Carl Mendes MD Emergency Medicine JOB #: [id number] EXT JOB #:[id number] EDITED: 02/24/2011 07:36 <Electronically Signed by Carl Mendes MD> 02/24/11 1549 documented in this encounter Plan of Treatment Not on filedocumented as of this encounter Procedures + +--------+ + + + | Procedure Name | Priori | Date/Time | Associated Diagnosis | Comments | | | ty | | | | + +--------+ + + + | TSH | Routin | 02/23/2011 | | Results for this | | | e | 3:19 PM | | procedure are in the | | | | PDT | | results section. | + +--------+ + + + | STREPTOCOCCUS GROUP | Routin | 02/23/2011 | | Results for this | | A, RAPID SCREEN | e | 3:16 PM | | procedure are in the | | | | PDT | | results section. | + +--------+ + + + | C-REACTIVE PROTEIN, | Routin | 02/23/2011 | | Results for this | | HIGH SENSITIVITY | e | 3:14 PM | | procedure are in the | | | | PDT | | results section. | + +--------+ + + + | SEDIMENTATION RATE | Routin | 02/23/2011 | | Results for this | | | e | 3:12 PM | | procedure are in the | | | | PDT | | results section. | + +--------+ + + + | PTT | Routin | 02/23/2011 | | Results for this | | | e | 2:19 PM | | procedure are in the | | | | PDT | | results section. | + +--------+ + + + | PROTIME INR | Routin | 02/23/2011 | | Results for this | | | e | 2:19 PM | | procedure are in the | | | | PDT | | results section. | + +--------+ + + + | CBC NO DIFFERENTIAL | Routin | 02/23/2011 | | Results for this | | | e | 2:19 PM | | procedure are in the | | | | PDT | | results section. | + +--------+ + + + | COMPREHENSIVE | Routin | 02/23/2011 | | Results for this | | METABOLIC PANEL | e | 2:19 PM | | procedure are in the | | | | PDT | | results section. | + +--------+ + + + | MRI BRAIN W WO | | 02/23/2011 | | Results for this | | CONTRAST | | 1:01 PM | | procedure are in the | | | | PDT | | results section. | + +--------+ + + + | CT HEAD WO CONTRAST | | 02/23/2011 | | Results for this | | | | 1:01 PM | | procedure are in the | | | | PDT | | results section. | + +--------+ + + + documented in this encounter Results TSH (02/23/2011 3:19 PM PDT) + + + + + + | Component | Value | Ref Range | Performed | Pathologist | | | | | At | Signature | + + + + + + | TSH | 0.53Comment: Testing | 0.34 - 5.60 | [facility] | | | | performed on the Damian | uIU/mL | [facility] | | | | [facility] | | MEDICAL | | | | Analyzer. | | CENTER - | | | | | | LABORATORY | | + + + + + + + + | Specimen | + + | | + + + + + + + | Performing | Address | City/State/Zipcode | Phone Number | | Organization | | | | + + + + + | [facility] | [address] | [place] | [phone] | | [facility] | | [address] | | | - LABORATORY | | | | + + + + + | [facility] | [address] | [place] | | | [facility] | | [address] | | | - LABORATORY | | | | + + + + + Streptococcus Group A, Rapid Screen (02/23/2011 3:16 PM PDT) + + + + + + | Component | Value | Ref Range | Performed | Pathologist | | | | | At | Signature | + + + + + + | STREP A AG | NEGATIVEComment: | | [facility] | | | | @INTERNAL QC OK?: | | [facility] | | | | CONTROL WINDOW TURNS | | MEDICAL | | | | PINK? YES | | CENTER - | | | | | | LABORATORY | | + + + + + + + + | Specimen | + + | | + + + + + + + | Performing | Address | City/State/Zipcode | Phone Number | | Organization | | | | + + + + + | [facility] | [address] | [place] | [phone] | | [facility] | | [address] | | | - LABORATORY | | | | + + + + + | [facility] | [address] | [place] | | | [facility] | | [address], [facility] [[email or web address]] | | | - LABORATORY | | | | + + + + + C-Reactive Protein, High Sensitivity (02/23/2011 3:14 PM PDT) + + + + + + | Component | Value | Ref Range | Performed | Pathologist | | | | | At | Signature | + + + + + + | CRP, High | <0.2Comment: | 0.0 - 3.0 mg/L | [facility] | | | Sensitive | Interpretation for | | [facility] | | | | Coronary Heart Disease | | MEDICAL | | | | Risk: Low | | CENTER - | | | | risk: <1.0 Average | | LABORATORY | | | | risk: 1.0 to 3.0 | | | | | | High Risk: >3.0 | | | | | | Relative risk | | | | | | categories follow the | | | | | | recommendations of the | | | | | | [place] [employer] | | | | | | Association and the CDC. | | | | | | Measurement of the | | | | | | hsCRP should be done | | | | | | twice (averaging | | | | | | results), optimally | | | | | | two weeks apart, in | | | | | | metabolically stable | | | | | | patients. If the | | | | | | hsCRP level is >10 | | | | | | mg/L, the test should be | | | | | | repeated and the | | | | | | patient examined for | | | | | | non cardiovascular | | | | | | sources of | | | | | | inflammation, such as | | | | | | infection. | | | | + + + + + + + + | Specimen | + + | | + + + + + + + | Performing | Address | City/State/Zipcode | Phone Number | | Organization | | | | + + + + + | [facility] | [address] | [place] | [phone] | | [facility] | | [address] | | | - LABORATORY | | | | + + + + + | [facility] | [address] | [place] | | | [facility] | | [address] | | | - LABORATORY | | | | + + + + + Sedimentation Rate (02/23/2011 3:12 PM PDT) + +-------+ + + + | Component | Value | Ref Range | Performed | Pathologist | | | | | At | Signature | + +-------+ + + + | Erythrocyte | 1 | 0 - 15 mm/hr | [facility] | | | | | | [facility] | | | Sedimentati | | | MEDICAL | | | on Rate | | | CENTER - | | | | | | LABORATORY | | + +-------+ + + + + + | Specimen | + + | | + + + + + + + | Performing | Address | City/State/Zipcode | Phone Number | | Organization | | | | + + + + + | [facility] | [address] | [place], [place] | [phone] | | [facility] | | [address] | | | - LABORATORY | | | | + + + + + | [facility] | [address] | [place], [place] | | | [facility] | | [id number] [place] [address] | | | - LABORATORY | | | | + + + + + Protime INR (02/23/2011 2:19 PM PDT) + + + + + + | Component | Value | Ref Range | Performed | Pathologist | | | | | At | Signature | + + + + + + | Prothrombin | 12.3 | 11.3 - 13.9 | [facility] | | | Time | | seconds | [facility] | | | | | | MEDICAL | | | | | | CENTER - | | | | | | LABORATORY | | + + + + + + | INR | 1.0Comment: INR: USUAL | | [facility] | | | | ORAL ANTICOAGULATION | | [facility] | | | | RANGE | | MEDICAL | | | | 2.0-3.0 | | CENTER - | | | | HIGH LEVEL ORAL | | LABORATORY | | | | ANTICOAGULATION RANGE | | | | | | 2.5-3.5 | | | | + + + + + + + + | Specimen | + + | | + + + + + + + | Performing | Address | City/State/Zipcode | Phone Number | | Organization | | | | + + + + + | [facility] | [address] | [place], [place] | [phone] | | [facility] | | [address] | | | - LABORATORY | | | | + + + + + | [facility] | [address] | [place], [place] | | | [facility] | | [address] | | | - LABORATORY | | | | + + + + + PTT (02/23/2011 2:19 PM PDT) + +-------+ + + + | Component | Value | Ref Range | Performed | Pathologist | | | | | At | Signature | + +-------+ + + + | aPTT | 27.8 | 22.1 - 36.0 | [facility] | | | | | seconds | [facility] | | | | | | MEDICAL | | | | | | CENTER - | | | | | | LABORATORY | | + +-------+ + + + + + | Specimen | + + | | + + + + + + + | Performing | Address | City/State/Zipcode | Phone Number | | Organization | | | | + + + + + | [facility] | [address] | [place] | [phone] | | [facility] | | [address] | | | - LABORATORY | | | | + + + + + | [facility] | [address] | [place] | | | [facility] | | [address], [facility] [[email or web address]] | | | - LABORATORY | | | | + + + + + Comprehensive Metabolic Panel (02/23/2011 2:19 PM PDT) + + + + + + | Component | Value | Ref Range | Performed | Pathologist | | | | | At | Signature | + + + + + + | Glucose | 123 (H) | 70 - 109 mg/dL | [facility] | | | | | | [facility] | | | | | | MEDICAL | | | | | | CENTER - | | | | | | LABORATORY | | + + + + + + | Calcium | 9.8 | 8.3 - 10.5 | [facility] | | | | | mg/dL | [facility] | | | | | | MEDICAL | | | | | | CENTER - | | | | | | LABORATORY | | + + + + + + | Alkaline | 56 | 40 - 110 IU/L | [facility] | | | Phosphatase | | | [facility] | | | | | | MEDICAL | | | | | | CENTER - | | | | | | LABORATORY | | + + + + + + | AST | 27 | 10 - 42 IU/L | [facility] | | | | | | [facility] | | | | | | MEDICAL | | | | | | CENTER - | | | | | | LABORATORY | | + + + + + + | ALT | 25 | 6 - 45 IU/L | [facility] | | | | | | [facility] | | | | | | MEDICAL | | | | | | CENTER - | | | | | | LABORATORY | | + + + + + + | Bilirubin | 1.0 | 0.2 - 1.0 mg/dL | [facility] | | | Total | | | [facility] | | | | | | MEDICAL | | | | | | CENTER - | | | | | | LABORATORY | | + + + + + + | Total | 7.5 | 6.0 - 7.8 gm/dL | [facility] | | | Protein | | | [facility] | | | | | | MEDICAL | | | | | | CENTER - | | | | | | LABORATORY | | + + + + + + | Albumin | 4.7 | 3.2 - 5.0 gm/dL | [facility] | | | | | | [facility] | | | | | | MEDICAL | | | | | | CENTER - | | | | | | LABORATORY | | + + + + + + | BUN | 12 | 7 - 18 mg/dL | [facility] | | | | | | [facility] | | | | | | MEDICAL | | | | | | CENTER - | | | | | | LABORATORY | | + + + + + + | Creatinine | 0.83 | 0.60 - 1.30 | [facility] | | | | | mg/dL | [facility] | | | | | | MEDICAL | | | | | | CENTER - | | | | | | LABORATORY | | + + + + + + | Estimated | >60Comment: For | >60 mL/min/A | [facility] | | | GFR | -Americans, | | [facility] | | | | please multiply the | | MEDICAL | | | | result by 1.210 | | CENTER - | | | | This is an estimated | | LABORATORY | | | | GFR and is based on | | | | | | a standard body | | | | | | mass and serum | | | | | | creatinine | | | | + + + + + + | BUN/Creatin | 14.5 | 12 - 20 | [facility] | | | ine Ratio | | | [facility] | | | | | | MEDICAL | | | | | | CENTER - | | | | | | LABORATORY | | + + + + + + | Na | 138 | 136 - 149 mEq/L | [facility] | | | | | | [facility] | | | | | | MEDICAL | | | | | | CENTER - | | | | | | LABORATORY | | + + + + + + | K | 3.9 | 3.5 - 5.1 mEq/l | [facility] | | | | | | [facility] | | | | | | MEDICAL | | | | | | CENTER - | | | | | | LABORATORY | | + + + + + + | Cl | 104 | 98 - 109 mEq/l | [facility] | | | | | | [facility] | | | | | | MEDICAL | | | | | | CENTER - | | | | | | LABORATORY | | + + + + + + | CO2 | 27 | 24 - 31 mEq/L | [facility] | | | | | | [facility] | | | | | | MEDICAL | | | | | | CENTER - | | | | | | LABORATORY | | + + + + + + | Anion Gap | 10.9 | 6.0 - 17.0 | [facility] | | | | | | [facility] | | | | | | MEDICAL | | | | | | CENTER - | | | | | | LABORATORY | | + + + + + + + + | Specimen | + + | | + + + + + + + | Performing | Address | City/State/Zipcode | Phone Number | | Organization | | | | + + + + + | [facility] | [address] | [place] | [phone] | | [facility] | | [address] | | | - LABORATORY | | | | + + + + + | [facility] | [address] | [place], [place] | | | [facility] | | [address] [place] [address] | | | - LABORATORY | | | | + + + + + CBC no Differential (02/23/2011 2:19 PM PDT) + +-------+ + + + | Component | Value | Ref Range | Performed | Pathologist | | | | | At | Signature | + +-------+ + + + | White Blood | 8.0 | 4.0 - 11.0 K/uL | [facility] | | | Cells | | | [facility] | | | | | | MEDICAL | | | | | | CENTER - | | | | | | LABORATORY | | + +-------+ + + + | Red Blood | 5.41 | 4.30 - 5.70 | [facility] | | | Cells | | M/uL | [facility] | | | | | | MEDICAL | | | | | | CENTER - | | | | | | LABORATORY | | + +-------+ + + + | Hemoglobin | 16.0 | 13.5 - 18.0 | [facility] | | | | | gm/dL | [facility] | | | | | | MEDICAL | | | | | | CENTER - | | | | | | LABORATORY | | + +-------+ + + + | Hematocrit | 48.4 | 40.0 - 51.0 % | [facility] | | | | | | [facility] | | | | | | MEDICAL | | | | | | CENTER - | | | | | | LABORATORY | | + +-------+ + + + | MCV | 89.6 | 83.0 - 101.0 fL | [facility] | | | | | | [facility] | | | | | | MEDICAL | | | | | | CENTER - | | | | | | LABORATORY | | + +-------+ + + + | MCH | 29.7 | 28.0 - 35.0 pg | [facility] | | | | | | [facility] | | | | | | MEDICAL | | | | | | CENTER - | | | | | | LABORATORY | | + +-------+ + + + | MCHC | 33.1 | 32.0 - 36.0 | [facility] | | | | | g/dL | [facility] | | | | | | MEDICAL | | | | | | CENTER - | | | | | | LABORATORY | | + +-------+ + + + | RDW-CV | 13.0 | <15.0 % | [facility] | | | | | | [facility] | | | | | | MEDICAL | | | | | | CENTER - | | | | | | LABORATORY | | + +-------+ + + + | Platelet | 254 | 140 - 440 K/uL | [facility] | | | Count | | | [facility] | | | | | | MEDICAL | | | | | | CENTER - | | | | | | LABORATORY | | + +-------+ + + + + + | Specimen | + + | | + + + + + + + | Performing | Address | City/State/Zipcode | Phone Number | | Organization | | | | + + + + + | [facility] | [address] | [place] | [phone] | | [facility] | | [address] | | | - LABORATORY | | | | + + + + + | [facility] | [address] | [place] | | | [facility] | | [address] | | | - LABORATORY | | | | + + + + + MRI Brain w wo Contrast (02/23/2011 1:01 PM PDT) + + | Specimen | + + | | + + + + + | Narrative | Performed At | + + + | [facility] Diagnostic Imaging Department | [facility] | | [address], [place] | [facility] | | BRAIN MRI WITH AND WITHOUT | DIAG IMG | | CONTRAST, WITH GENERAL SEDATION, 02/23/2011 AT 1600 HOURS | | | CLINICAL HISTORY: ACUTE ONSET OF CHOREOATHETOSIS. TECHNIQUE: | | | T1 sagittal and transaxial, transaxial spin echo PD/T2, transaxial | | | FLAIR, transaxial gradient echo FLASH, and post-gadolinium T1 | | | transaxial and coronal. General anesthesia was administered by the | | | attending anesthesiologist, under the general sedation guidelines of | | | [facility] [address]. The attending anesthesiologist was | | | present throughout the procedure. FINDINGS: No restricted | | | diffusion is identified. There is no evidence of acute or chronic | | | infarction . Leija and white matter are normal in signal on T1, T2 | | | and inversion recovery. There is no abnormal enhancement after | | | contrast. There is no blood brain barrier defect. Particular attention | | | is paid to t he basal ganglia and lentiform nuclei which appear | | | normal. The ventricular system is normal without hydrocephalus. | | | Brainstem and cerebellum are unremarkable. Major intracranial vascular | | | structures demonstrate normal flow voids. Orbits and skull base are | | | unremarkable. IMPRESSION: 1. NORMAL MRI OF THE BRAIN WITH | | | AND WITHOUT CONTRAST. COMMENT: Findings reported to Dr. Mendes. | | | Dictated Date/Time: 02/23/2011 17:08 Transcribed Date/Time: | | | 02/23/2011 17:24 Seismograph Shooter: <Electronically | | | Signed by Darrian Quezada MD> 02/23/11 1839 | | + + + + + | Procedure Note | + + | Kang, Rad Conversion - 01/02/2014 2:35 PM [facility] | | Diagnostic Imaging Department [address] [place] [address] | | BRAIN MRI WITH AND WITHOUT CONTRAST, WITH GENERAL | | SEDATION, 02/23/2011 AT 1600 HOURS CLINICAL HISTORY: ACUTE ONSET OF CHOREOATHETOSIS. | | TECHNIQUE: T1 sagittal and transaxial, transaxial spin echo PD/T2, transaxial FLAIR, | | transaxial gradient echo FLASH, and post-gadolinium T1 transaxial and coronal. General | | anesthesia was administered by the attending anesthesiologist, under the general | | sedation guidelines of [facility] [address]. The attending anesthesiologist was | | present throughout the procedure. FINDINGS: No restricted diffusion is identified. | | There is no evidence of acute or chronic infarction. Leija and white matter are normal in | | signal on T1, T2 and inversion recovery. There is no abnormal enhancement after | | contrast. There is no blood brain barrier defect. Particular attention is paid to the | | basal ganglia and lentiform nuclei which appear normal. The ventricular system is normal | | without hydrocephalus. Brainstem and cerebellum are unremarkable. Major intracranial | | vascular structures demonstrate normal flow voids. Orbits and skull base are | | unremarkable. IMPRESSION: 1. NORMAL MRI OF THE BRAIN WITH AND WITHOUT CONTRAST. | | COMMENT: Findings reported to Dr. Mendes. Dictated Date/Time: 02/23/2011 17:08 | | Transcribed Date/Time: 02/23/2011 17:24 Seismograph Shooter: <Electronically Signed | | by Darrian Quezada MD> 02/23/111838 | |enhancement after contrast. There is no blood brain barrier defect. Particular attention is paid to t | |he | |basal ganglia and lentiform nuclei which appear normal. The ventricular system is normal wi thout | |hydrocephalus. Brainstem and cerebellum are unremarkable. Major intracranial vascular struc tures | |demonstrate normal flow voids. Orbits and skull base are unremarkable. | | | |IMPRESSION: | |1. NORMAL MRI OF THE BRAIN WITH AND WITHOUT CONTRAST. | | | |COMMENT: Findings reported to Dr. Mendes. | | | |Dictated Date/Time: 02/23/2011 17:08 | |Transcribed Date/Time: 02/23/2011 17:24 | |Seismograph Shooter: | |<Electronically Signed by Darrian Quezada MD> 02/23/111838 | + + + +---------+ + + | Performing | Address | City/State/Zipcode | Phone Number | | Organization | | | | + +---------+ + + | [facility] | | | | | [facility] DIA IMG | | | | + +---------+ + + CT Head wo Contrast (02/23/2011 1:01 PM PDT) + + | Specimen | + + | | + + + + + | Narrative | Performed At | + + + | [facility] Diagnostic Imaging Department | [facility] | | [address] [address] [facility] | [facility] | | UNENHANCED HEAD CT 02/23/2011 | DIA IMG | | 1416 HOURS CLINICAL HISTORY: POSSIBLE SEIZURE. | | | COMPARISON: None. TECHNIQUE: Axial unenhanced images are | | | performed through the head. FINDINGS: Fine detail is | | | somewhat obscured by motion artifact. The brain parenchyma, | | | ventricles, brainstem and cerebellum are unremarkable. There is no | | | shift of midline structures, convincing evidence of intracranial | | | hemorrhage, or extraaxial fluid collection/mass. Bones and soft | | | tissues, including the imaged paranasal sinuses and mastoid air | | | cells, are unremarkable. IMPRESSION: 1. MOTION DEGRADED | | | STUDY DEMONSTRATING NO CONVINCING EVIDENCE OF INTRACRANIAL DISEASE. | | | COMMENT: IMAGES WERE PROVIDED FOR INTERPRETATION ON 02/23/2011 | | | AT 1420 HOURS. RESULTS WERE PHONED TO [facility] (NURSE IN ER WORKING | | | WITH DR. CHAPMAN) AT THE TIME OF INTERPRETATION AT 1435 HOURS. | | | Dictated Date/Time: 02/23/2011 14:39 Transcribed Date/Time: | | | 02/23/2011 14:44 Seismograph Shooter: <Electronically Signed | | | by Brown Almanzar MD> 02/23/11 1608 | | + + + + + | Procedure Note | + + | Sae Kapadia Conversion - 01/02/2014 2:35 PM [facility] | | Diagnostic Imaging Department [address] [address] [facility] | | UNENHANCED HEAD CT 02/23/2011 1416 HOURS CLINICAL | | HISTORY: POSSIBLE SEIZURE. COMPARISON: None. TECHNIQUE: Axial unenhanced images | | are performed through the head. FINDINGS: Fine detail is somewhat obscured by | | motion artifact. The brain parenchyma, ventricles, brainstem and cerebellum are | | unremarkable. There is no shift of midline structures, convincing evidence of | | intracranial hemorrhage, or extraaxial fluid collection/mass. Bones and soft tissues, | | including the imaged paranasal sinuses and mastoid air cells, are unremarkable. | | IMPRESSION: 1. MOTION DEGRADED STUDY DEMONSTRATING NO CONVINCING EVIDENCE OF | | INTRACRANIAL DISEASE. COMMENT: IMAGES WERE PROVIDED FOR INTERPRETATION ON 02/23/2011 | | AT 1420 HOURS. RESULTS WERE PHONED TO [facility] (NURSE IN ER WORKING WITH DR. CHAPMAN) | | AT THE TIME OF INTERPRETATION AT 1435 HOURS. Dictated Date/Time: 02/23/2011 14:39 | | Transcribed Date/Time: 02/23/2011 14:44 Seismograph Shooter: <Electronically Signed | | by Brown Almanzar MD> 02/23/11 1608 | |ventricles, brainstem and cerebellum are unremarkable. There is no shift of midline struct ures, | |convincing evidence of intracranial hemorrhage, or extraaxial fluid collection/mass. Bones and soft | | | |tissues, including the imaged paranasal sinuses and mastoid air cells, are unremarkable. | | | |IMPRESSION: | |1. MOTION DEGRADED STUDY DEMONSTRATING NO CONVINCING EVIDENCE OF | |INTRACRANIAL DISEASE. | | | |COMMENT: IMAGES WERE PROVIDED FOR INTERPRETATION ON 02/23/2011 AT 1420 | |HOURS. RESULTS WERE PHONED TO [facility] (NURSE IN ER WORKING WITH | |SHARLA) AT THE TIME OF INTERPRETATION AT 1435 HOURS. | | | |Dictated Date/Time: 02/23/2011 14:39 | |Transcribed Date/Time: 02/23/2011 14:44 | |Seismograph Shooter: | |<Electronically Signed by Brown Almanzar MD> 02/23/11 1608 | + + + +---------+ + + | Performing | Address | City/State/Zipcode | Phone Number | | Organization | | | | + +---------+ + + | [place] | | | | | [facility] | | | | + +---------+ + + documented in this encounter Visit Diagnoses Not on filedocumented in this encounter
--- OUTSIDE RECORDS SUMMARY | ~2020-08-23 | XMS | Encounter Summary ---
Demographics + + + | Address | [address] | | | [place] [address] | + + + | Home Phone [...] + + + | Author | [facility] | | | and [place] | + + + | Organization | [facility] | | | and [place] | + + + | Address | Unknown | + + + | Phone | Unavailable | + + + Support + + + + + | Name | Relationship | Address | Phone | + + + + + | Melisa Simpson | ECON | [address] | | | | | [place], | | | | | [place] [address] | | + + + + + | Osmel Simpson | ECON | [address] | | | | | [place] [address] | | + + + + + Care Team Providers + +------+ + | Care Drill Press Set Up Operator Name | Role | Phone | + +------+ + PCP | Unavailable | + +------+ + Encounter Details +--------+ + + + + | Date | Type | Department | Care Team | Description | +--------+ + + + + | 06/18/ | Hospital | [facility] | [place], | | | 1998 - | Encounter | MED CTR MED ONC | Henry Huber MD [address] | | | | | [address] [place] | [facility] | | | 06/19/ | | [place] [address] | [place] [address] | | | 1998 | | [phone] | [phone] | | | | | | | [...]
--- OUTSIDE RECORDS SUMMARY | ~2020-08-23 | XMS | Encounter Summary ---
Demographics + + + | Address | [address] | | | [place] [address] | + + + | Home Phone | | + + + | Preferred Language | Unknown | + + + | Marital Status | Single | + + + | Caodaism Affiliation | 1077 | + + + | Race | White | + + + | Ethnic Group | Not or | + + + Author + + + | Author | [facility] | | | and [place] | + + + | Organization | [facility] | | | [...] [place], | | | | | [place] [address] | | + + + + + | Osmel Simpson | ECON | [address] | | | | | [place] [address] | | + + + + + Care Team Providers + +------+ + | Care Official Court Reporter Name | Role | Phone | + +------+ + PCP | Unavailable | + +------+ + Reason for Visit + +--------+ + | Reason | Onset | Comments | | | Date | | + +--------+ + | Medication Refill | 08/19/ | | | | 2012 | | + +--------+ + Encounter Details +--------+--------+ + + + | Date | Type | Department | Care Team | Description | +--------+--------+ + + + | 08/19/ | Refill | [facility] | Félix Li MD | Medication Refill | | 2012 | | [facility] | [address] [facility] | | | | | CLINIC [address] | [address], | | | | | [place], [place] | [place] [address] | | | | | [address] | [phone] | | | | | [phone] | | | +--------+--------+ + + + [...] | Diagnosis | + + | Type II or unspecified type diabetes mellitus without mention of complication, | | uncontrolled - Primary | + + documented in this encounter"
--- OUTSIDE RECORDS SUMMARY | ~2020-08-23 | XMS | Encounter Summary ---
Demographics + + + | Address | [address] | | | [place] [address] | + + + | Home Phone | | + + + | Preferred Language | Unknown | + + + | Marital Status | Single | + + + | Baptism Affiliation | 1077 | + + + | Race | White | + + + | Ethnic Group | Not or | + + + Author + + + | Author | [facility] | | | and [place] | + + + | Organization | [facility] | | | and [place] | + + + | Address | Unknown | + + + | Phone | Unavailable | + + + Support + + + + + | Name | Relationship | Address | Phone | + + + + + | Melisa Simpson | ECON | [address] | | | | | [place], | | | | | [place] [address] | | + + + + + | Osmel Simpson | ECON | [address] | | | | | [place] [address] | | + + + + + Care Team Providers + +------+ + | Care Preservationist Name | Role | Phone | + +------+ + PCP | Unavailable | + +------+ + Encounter Details +--------+ + + + + | Date | Type | Department | Care Team | Description | +--------+ + + + + | 02/23/ | Hospital | [facility] | | | | 1996 - | Encounter | MED CTR ICU [address] | | | | | | [place], | | | | [address]/ | | [place] [address] | | | | 1996 | | [phone] | | | +--------+ + + + [...]
--- OUTSIDE RECORDS SUMMARY | ~2020-08-23 | XMS | Encounter Summary ---
Demographics + + + | Address | [address] | | | [place] [address] | + + + | Home Phone [...] Author | [facility] | | | and [...] [place] | | | | | [place] [address] | | + + + + + | Osmel Simpson | ECON | [address] | | | | | [place] [address] | | + + + + + Care Team Providers + +------+ + | Care Taker Off Name | Role | Phone | + +------+ + | Félix Li MD | PCP | | + +------+ + Encounter Details +--------+ + + + + | Date | Type | Department | Care Team | Description | +--------+ + + + + | 05/26/ | Orders Only | [facility] | Kat Rowan | | | 2013 | | [facility] | MD [place] | | | | | MEDICINE [address] | | | | | | [place] | | | | | | [place] | | | | | | [address] | | | | | | [phone] | | | +--------+ + + + [...] documented as of this encounter Progress Notes Kat Rowan MD - 05/26/2014 8:28 PM PDTOn call- called needs refill for pt insulin - is at [facility] [place]- is atype 1 dm -he is there waiting -has not been abl e to get novolog locally- sw not successful at transfering script. christopher sent and called [facility] to confirmed receipt. documented in this encounter Plan of Treatment Not on filedocumented as of this encounter Visit Diagnoses Not on filedocumented in this encounter"
--- OUTSIDE RECORDS SUMMARY | ~2020-08-23 | XMS | Encounter Summary ---
Demographics + + + | Address | [address] | | | [place] [address] | + + + | Home Phone | | + + + | Preferred Language | Unknown | + + + | Marital Status | Single | + + + | Quaker Affiliation | 1077 | + + + | Race | White | + + + | Ethnic Group | Not or | + + + Author + + + | Author | [facility] | | | and [place] | + + + | Organization | [facility] | | | and [place] | + + + | Address | Unknown | + + + | Phone | Unavailable | + + + Support + + + + + | Name | Relationship | Address | Phone | + + + + + | Melisa Simpson | ECON | [address] | | | | | [place], | | | | | [place] [address] | | + + + + + | Osmel Simpson | ECON | [address] | | | | | [place] [address] | | + + + + + Care Team Providers + +------+ + | Care Advertising Supervisor Name | Role | Phone | + +------+ + PCP | Unavailable | + +------+ + Encounter Details +--------+ + + + + | Date | Type | Department | Care Team | Description | +--------+ + + + + | 06/16/ | [facility] | | [facility] | Encounter | MED CTR GENERIC IP | | | | | | CONV DEPT [address] | | | | | | [place], | | | | | | [place] [address] | | | | | | [phone] | | | +--------+ + + + [...]
--- OUTSIDE RECORDS SUMMARY | ~2020-08-23 | XMS | Encounter Summary ---
Demographics + + + | Address | [address] | | | [place] [address] | + + + | Home Phone | | + + + | Preferred Language | Unknown | + + + | Marital Status | Single | + + + | Bahai Affiliation | 1077 | + + + | Race | White | + + + | Ethnic Group | Not or | + + + Author + + + | Author | [facility] | | | and [...] Melisa Simpson | ECON | [address] | | | | | [place], | | | | | [place] [address] | | + + + + + | Osmel Simpson | ECON | [address] | | | | | [place] [address] | | + + + + + Care Team Providers + +------+ + | Care Bioinformatics Team Member Name | Role | Phone | + +------+ + PCP | Unavailable | + +------+ + Encounter Details +--------+ + + + + | Date | Type | Department | Care Team | Description | +--------+ + + + + | 07/10/ | Hospital | [facility] | | | | 1996 - | Encounter | MED CTR ICU [address] | | | | | | [place], | | | | [address]/ | | [place] [address] | | | | 1996 | | [phone] | | | +--------+ + + + [...]
[2020-08-23] MEDS ORDERED: HUMALOG100 UNIT/2 SUB-Q (09:24)
[2020-08-23] MEDS ORDERED: LANTUS100 UNITS/ SUB-Q (09:24)
[2020-08-23] MEDS ORDERED: BUPROPION HCL100 M1 PO (09:25)
[2020-08-23] MEDS ORDERED: LISINOPRIL10 MG PO (09:25)
[2020-08-23] MEDS ORDERED: SERTRALINE HCL100 MG PO (09:25)
[2020-08-23] MEDS ORDERED: ATORVASTATIN CA20 MG PO (09:25)
[2020-08-23] MEDS ORDERED: HYDROXYZINE HCL25 MG PO (09:26)
== END 2020-08-23 10:44 | disposition home or self-care (01) ==
LOC: ED 09:04
DX: H53.131 Sudden visual loss, right eye (principal); E10.9 Type 1 diabetes mellitus without complications; Z79.899 Other long term (current) drug therapy; Z79.4 Long term (current) use of insulin
CPT/HCPCS: 99283